=== PATIENT | female | born 1985 ===

== ENCOUNTER 2016-10-23 11:51 | Emergency (ER) | payer MEDICAID ==
[2016-10-23 11:51] VITALS: BMI 26.2
[2016-10-23 11:55] VITALS: TEMP 98.1
[2016-10-23] MEDS ORDERED: Sodium Chloride 0.9% 1,000 ML IV ONE (12:21)
[2016-10-23] MEDS ORDERED: Sodium Chloride 0.9% 1,000 ML ONE (12:33)
[2016-10-23 12:35] LABS: BASO # 0.1 K/uL (0.0-0.2); BASO % 0.7 % (0.0-2.0); EOS # 0.1 K/uL (0.0-0.7); EOS % 0.6 % (0.0-4.0); HEMATOCRIT 39.2 % (34.0-47.0); LYMPH # 0.8 K/uL (1.0-4.3); LYMPH % 9.8 % (20.0-40.0); MEAN CORPUSCULAR HEMOGLOBIN 27.6 pg (27.0-31.0); MEAN CORPUSCULAR HGB CONC 33.3 g/dL (33.0-37.0); MEAN PLATELET VOLUME 8.6 fL (7.2-11.7); MONO # 0.7 K/uL (0.0-0.8); MONO % 7.9 % (0.0-10.0); PLATELET COUNT 346 K/uL (130-400); RED CELL DISTRIBUTION WIDTH 12.9 % (11.5-14.5); WHITE BLOOD COUNT 8.5 K/uL (4.8-10.8)
[2016-10-23 12:41] LABS: CHLORIDE 99 mmol/L (98-107)
[2016-10-23 12:42] LABS: POTASSIUM 3.9 mmol/L (3.6-5.2); SODIUM 136 mmol/L (132-148)
[2016-10-23 12:44] LABS: GFR AFRICAN-AMERICAN > 60
[2016-10-23 12:45] LABS: ALB/GLOB RATIO 1.4 (1.0-2.1); ALKALINE PHOSPHATASE 91 U/L (38-126); ALT/SGPT 28 U/L (9-52); AST/SGOT 29 U/L (14-36); BILIRUBIN,TOTAL 0.7 mg/dL (0.2-1.3); BLOOD UREA NITROGEN 15 mg/dL (7-17); CALCIUM 9.4 mg/dl (8.6-10.4); CARBON DIOXIDE 24 mmol/L (22-30); GLUCOSE,RANDOM 92 mg/dL (65-105); TOTAL PROTEIN 8.2 g/dL (6.3-8.3)
[2016-10-23 12:53] LABS: RBC URINE < 1 /hpf (0-3); URINE BACTERIA RARE (<OCC); URINE BILIRUBIN NEGATIVE (NEGATIVE); URINE BLOOD NEGATIVE (NEGATIVE); URINE COLOR Yellow (YELLOW); URINE GLUCOSE (UA) NORMAL (Normal); URINE KETONE NEGATIVE (NEGATIVE); URINE LEUKOCYTE ESTERASE NEG Leu/uL (Negative); URINE PROTEIN NEGATIVE (NEGATIVE); URINE UROBILINOGEN NORMAL mg/dL (0.2-1.0); WBC URINE 4 /hpf (0-5)
[2016-10-23 12:57] LABS: EOSINOPHIL 1 % (0-4); NEUTROPHIL 85 % (50-75); TOTAL CELLS COUNTED 100
--- NOTE | 2016-10-23 12:58 | C.PDOC ---
History Of Present Illness 31-year-old female, presents to the emergency department with complaints of abdominal pain, nausea w/ non-bloody/non-bilious vomiting and 5-6 episodes of watery/non-bloody diarrhea that started last night. Patient states she ate "mac n cheese" w/ daughter, who initially had similar symptoms, but then improved. Patient reports she is currently having pain but denies nausea. No dysuria or cough. Time Seen by Provider: 10/23/16 11:57 Chief Complaint (Nursing): Abdominal Pain History Per: Patient History/Exam Limitations: no limitations Onset/Duration Of Symptoms: Hrs Current Symptoms Are (Timing): Still Present Severity: Moderate Past Medical History Reviewed: Historical Data, Nursing Documentation, Vital Signs Vital Signs: Last Vital Signs Temp 98.1 F 10/23/16 11:53 Pulse 76 10/23/16 11:53 Resp 20 10/23/16 11:53 BP 124/71 10/23/16 11:53 Pulse Ox 100 10/23/16 13:00 - Medical History PMH: Back Problems Family History: States: No Known Family Hx - Social History Hx Tobacco Use: No Hx Alcohol Use: No Hx Substance Use: No - Immunization History Hx Tetanus Toxoid Vaccination: No Hx Influenza Vaccination: No Hx Pneumococcal Vaccination: No Review Of Systems Constitutional: Negative for: Fever, Chills Cardiovascular: Negative for: Chest Pain, Palpitations Gastrointestinal: Positive for: Nausea, Vomiting, Abdominal Pain, Diarrhea Genitourinary: Negative for: Dysuria, Vaginal Discharge, Vaginal Bleeding Musculoskeletal: Negative for: Back Pain Skin: Negative for: Rash Neurological: Negative for: Weakness, Numbness Physical Exam - Physical Exam Appears: Non-toxic, No Acute Distress, Other (Mild painful distress) Skin: Warm, Dry, No Rash Eye(s): bilateral: Normal Inspection Nose: Normal Oral Mucosa: Moist Lips: Normal Appearing Neck: Normal ROM Cardiovascular: Rhythm Regular Respiratory: Normal Breath Sounds, No Accessory Muscle Use Gastrointestinal/Abdominal: Soft, No Tenderness Extremity: Normal ROM Neurological/Psych: Oriented x3 ED Course And Treatment - Laboratory Results Result Diagrams: 10/23/16 12:31 10/23/16 12:31 O2 Sat by Pulse Oximetry: 100 Progress Note: Bloodwork, UA/HCG ordered and reviewed. Patient treated with IVF and Toradol. Disposition Counseled Patient/Family Regarding: Studies Performed, Diagnosis, Need For Followup - Disposition Referrals: Nael Persaud, SANTO, CHARGING OPERATOR [Advanced Practice Nurse] - Disposition: HOME/ ROUTINE Disposition Time: 13:40 Condition: STABLE Additional Instructions: FOLLOW UP WITH YOUR DOCTOR/CLINIC IN 1-2 DAYS USE MEDICATIONS NEEDED DRINK PLENTY OF CLEAR FLUIDS RETURN TO EMERGENCY ROOM IF SYMPTOMS WORSEN Prescriptions: Dicyclomine [Bentyl] 20 mg PO Q6 PRN #12 tab PRN Reason: ABDOMINAL CRAMPING Ondansetron [Zofran Odt] 4 mg PO Q8 PRN #12 odt PRN Reason: Nausea/Vomiting Instructions: Acute Nausea and Vomiting (ED), Acute Diarrhea (ED) Print Language: CONGOLESE - POA Present On Arrival: None - Clinical Impression Clinical Impression: Nausea, Vomiting, Diarrhea - Scribe Statement The provider has reviewed the documentation as recorded by the Efrain Celeste All medical record entries made by the Efrain were at my direction and personally dictated by me. I have reviewed the chart and agree that the record accurately reflects my personal performance of the history, physical exam, medical decision making, and the department course for this patient. I have also personally directed, reviewed, and agree with the discharge instructions and disposition.
[2016-10-23 13:51] VITALS: BP 100/62; PULSE 77; RESP 18; O2SAT 99
== END 2016-10-23 13:50 | disposition home or self-care (01) ==
LOC: C.ER 11:51
DX: R11.2 Nausea with vomiting, unspecified (principal); R19.7 Diarrhea, unspecified
CPT/HCPCS: 80053; 81001; 83690; 84703; 85025; 96361; 96374; 99284; J1885; J7040

== ENCOUNTER 2017-06-13 15:06 | Emergency (ER) | payer MEDICAID ==
[2017-06-13 15:06] VITALS: BMI 26.2
[2017-06-13 15:21] VITALS: RESP 20
[2017-06-13 16:47] LABS: BASO # 0.1 K/uL (0.0-0.2); BASO % 1.2 % (0.0-2.0); EOS # 0.2 K/uL (0.0-0.7); EOS % 3.4 % (0.0-4.0); HEMOGLOBIN 12.6 g/dL (11.0-16.0); LYMPH % 14.7 % (20.0-40.0); MEAN CELL VOLUME 82.7 fL (81.0-99.0); MEAN CORPUSCULAR HEMOGLOBIN 27.5 pg (27.0-31.0); MEAN CORPUSCULAR HGB CONC 33.3 g/dL (33.0-37.0); MEAN PLATELET VOLUME 8.8 fL (7.2-11.7); MONO # 0.5 K/uL (0.0-0.8); MONO % 7.5 % (0.0-10.0); NEUT % 73.2 % (50.0-75.0); NRBC % 0.1 % (0.0-2.0); RBC 4.58 Mil/uL (3.80-5.20); RED CELL DISTRIBUTION WIDTH 13.9 % (11.5-14.5); WHITE BLOOD COUNT 6.9 K/uL (4.8-10.8)
--- NOTE | 2017-06-13 16:55 | C.PDOC ---
History Of Present Illness 32-YEAR-OLD FEMALE, PRESENTS TO THE EMERGENCY DEPARTMENT WITH COMPLAINTS OF NVD X 10 DAYS. +SICK CONTACTS W SAME. NO FEVER. INC GEN WEAKNESS, ABD CRAMPING. EXAM MILD DIST NONTOXIC SUNKEN EYES ABD NEG POOR TURGOR REMAINDER NEG Time Seen by Provider: 06/13/17 15:45 Chief Complaint (Nursing): Abdominal Pain History Per: Patient History/Exam Limitations: no limitations Onset/Duration Of Symptoms: Days Current Symptoms Are (Timing): Still Present Severity: Moderate Past Medical History Reviewed: Historical Data, Nursing Documentation, Vital Signs Vital Signs: Last Vital Signs Temp 97.5 F L 06/13/17 17:32 Pulse 52 L 06/13/17 17:32 Resp 20 06/13/17 17:32 BP 113/69 06/13/17 17:32 Pulse Ox 100 06/13/17 17:37 - Medical History PMH: Back Problems Family History: States: No Known Family Hx, Unknown Family Hx - Social History Hx Tobacco Use: No Hx Alcohol Use: No Hx Substance Use: No - Immunization History Hx Tetanus Toxoid Vaccination: No Hx Influenza Vaccination: No Hx Pneumococcal Vaccination: No Review Of Systems Except As Marked, All Systems Reviewed And Found Negative. Constitutional: Positive for: Weakness. Negative for: Fever, Chills Cardiovascular: Negative for: Chest Pain, Palpitations Respiratory: Negative for: Shortness of Breath Gastrointestinal: Positive for: Nausea, Vomiting, Abdominal Pain, Diarrhea Musculoskeletal: Negative for: Back Pain Neurological: Negative for: Numbness, Headache, Dizziness Physical Exam - Physical Exam Appears: Non-toxic, No Acute Distress (mild distress) Skin: Warm, Dry, No Rash, Other (POOR TURGOR) Head: Atraumatic, Normacephalic Eye(s): bilateral: Other (SUNKEN EYES) Nose: Normal Oral Mucosa: Moist Lips: Normal Appearing Neck: Normal ROM Chest: Symmetrical Cardiovascular: Rhythm Regular, No Murmur Respiratory: Normal Breath Sounds, No Accessory Muscle Use Gastrointestinal/Abdominal: Soft, No Tenderness ED Course And Treatment - Laboratory Results Result Diagrams: 06/13/17 16:43 06/13/17 16:43 O2 Sat by Pulse Oximetry: 100 (on RA) Pulse Ox Interpretation: Normal Progress - Data Reviewed Data Reviewed: Lab, Old records Disposition Counseled Patient/Family Regarding: Studies Performed, Diagnosis, Need For Followup, Rx Given - Disposition Referrals: YOUR,PMD [Other] Disposition: HOME/ ROUTINE Disposition Time: 18:32 Condition: IMPROVED Prescriptions: Atropine/Diphenoxylate [Lonox 0.025 MG-2.5 MG] 1 tab PO TID PRN #12 tab PRN Reason: Diarrhea Dicyclomine [Bentyl] 20 mg PO QID PRN #20 tab PRN Reason: Pain, Moderate (4-7) Ondansetron [Zofran Odt] 4 mg PO TID PRN #9 odt PRN Reason: Nausea/Vomiting Instructions: Acute Diarrhea (ED) Forms: [employer] (Samoan), Work Excuse - Clinical Impression Clinical Impression: Abdominal pain, Diarrhea - Scribe Statement The provider has reviewed the documentation as recorded by the Scribe (Jaiden Celeste) All medical record entries made by the Scribe were at my direction and personally dictated by me. I have reviewed the chart and agree that the record accurately reflects my personal performance of the history, physical exam, medical decision making, and the department course for this patient. I have also personally directed, reviewed, and agree with the discharge instructions and disposition.
[2017-06-13 16:59] LABS: ALBUMIN 4.3 g/dL (3.5-5.0); CALCIUM 9.3 mg/dl (8.6-10.4); GFR AFRICAN-AMERICAN > 60; GFR NON-AFRICAN AMERICAN > 60; LIPASE 88 U/L (23-300)
[2017-06-13] MEDS ORDERED: Atropine-Diphenoxylate 0.025-2.5 mg Tab PO STA (17:02)
[2017-06-13] MEDS ORDERED: Atropine-Diphenoxylate 0.025-2.5 mg Tab ONE (17:08)
[2017-06-13] MEDS ORDERED: Sodium Chloride 0.9% 2,000 ML ONE (17:09)
[2017-06-13 17:15] LABS: ALB/GLOB RATIO 1.1 (1.0-2.1); ALT/SGPT 20 U/L (9-52); AST/SGOT 33 U/L (14-36); BLOOD UREA NITROGEN 9 mg/dL (7-17)
[2017-06-13 17:34] VITALS: BP 113/69; PULSE 52; TEMP 97.5
[2017-06-13 17:35] VITALS: O2SAT 100
[2017-06-13 17:54] LABS: SQUAMOUS EPITHIAL 2 /hpf (0-5); URINE BACTERIA RARE (<OCC); URINE BILIRUBIN NEGATIVE (NEGATIVE); URINE CLARITY Clear (Clear); URINE COLOR Straw (YELLOW); URINE GLUCOSE (UA) NORMAL (Normal); URINE LEUKOCYTE ESTERASE NEG Leu/uL (Negative); URINE NITRATE NEGATIVE (NEGATIVE); URINE PROTEIN NEGATIVE (NEGATIVE); URINE UROBILINOGEN NORMAL mg/dL (0.2-1.0)
[2017-06-13 17:55] LABS: URINE BLOOD TRACE-INTACT (NEGATIVE)
[2017-06-13] MEDS ORDERED: Oxycodone/Acetaminophen 5/325 mg Tab PO STA (18:36)
[2017-06-13] MEDS ORDERED: Oxycodone/Acetaminophen 5/325 mg Tab ONE (18:54)
== END 2017-06-13 18:57 | disposition home or self-care (01) ==
LOC: C.ER 15:06
DX: R10.9 Unspecified abdominal pain (principal); R19.7 Diarrhea, unspecified
CPT/HCPCS: 80053; 81001; 83690; 85025; 96361; 96372; 96374; 99284; J0500; J2405; J7040

== ENCOUNTER 2017-10-23 22:28 | Emergency (ER) | payer MEDICAID ==
[2017-10-23 22:29] VITALS: BMI 26.2
[2017-10-23 22:47] VITALS: TEMP 98.6; O2SAT 99
--- NOTE | 2017-10-23 23:10 | C.PDOC ---
History Of Present Illness 32 year old female presents to the emergency department with subacute onset of worsening shortness of breath along with a non-productive cough seen mostly at night. Patient is also feeling nauseous, reporting that she vomited only once today, and that she has noticed a weight gain of 10 pounds over the last two weeks. patient also reports frequent urination at night, and experiences shortness of breath on exertion. She also reports noticing black blood in her menstrual period. Patient denies recent control use, recent calf pain or swelling, fever, sore throat, and rashes. Patient's past medical and surgical history is non-contributory. Chief Complaint (Nursing): GI Problem History Per: Patient History/Exam Limitations: no limitations Onset/Duration Of Symptoms: Other (two weeks) Associated Symptoms: denies: Productive Cough, Ankle/Leg Swelling Past Medical History Reviewed: Historical Data, Nursing Documentation, Vital Signs Vital Signs: Last Vital Signs Temp 98.6 F 10/24/17 03:30 Pulse 86 10/24/17 03:30 Resp 20 10/24/17 03:30 BP 116/70 10/24/17 03:30 Pulse Ox 99 10/24/17 03:30 - Medical History PMH: Back Problems Surgical History: No Surg Hx Family History: States: No Known Family Hx - Social History Hx Tobacco Use: No Hx Alcohol Use: No Hx Substance Use: No - Immunization History Hx Tetanus Toxoid Vaccination: No Hx Influenza Vaccination: No Hx Pneumococcal Vaccination: No Review Of Systems Except As Marked, All Systems Reviewed And Found Negative. Constitutional: Negative for: Fever ENT: Negative for: Throat Pain Respiratory: Positive for: Cough, Shortness of Breath, SOB with Excertion Gastrointestinal: Positive for: Nausea, Vomiting Genitourinary: Positive for: Frequency Musculoskeletal: Negative for: Leg Pain Skin: Negative for: Rash Physical Exam - Physical Exam Appears: Non-toxic, No Acute Distress Skin: Warm, Dry Head: Atraumatic, Normacephalic Eye(s): bilateral: Normal Inspection Oral Mucosa: Moist Throat: Normal, No Erythema, No Exudate, No Drooling Neck: Supple, Other (JVD at 0 degrees, resolves with elevation) Chest: Symmetrical Cardiovascular: Rhythm Regular, Murmur (systolic 3/6 loudest in the aortic area , right second intercostal space) Respiratory: Normal Breath Sounds, No Rales, No Rhonchi, No Stridor, No Wheezing , Other (persistent cough througout the exam) Gastrointestinal/Abdominal: Normal Exam, Soft, No Tenderness, No Guarding, No Rebound Extremity: Normal ROM, Swelling (trace edema to bilateral lower extremities) Pulses: Left Dorsalis Pedis: Normal, Right Dorsalis Pedis: Normal Neurological/Psych: Oriented x3 ED Course And Treatment - Laboratory Results Result Diagrams: 10/23/17 23:18 10/23/17 23:18 ECG Rhythm: Sinus Rhythm (71 bpm ) ECG Interpretation: Normal Interpretation Of ECG: Intervals within normal limits, poor heart wave progression across the lateral precordial leads, no old EKG for comparison. O2 Sat by Pulse Oximetry: 99 (RA) Pulse Ox Interpretation: Normal - CT Scan/US CT Angio Chest Other Rad Studies (CT/US): Read By Radiologist, Radiology Report Reviewed CT/US Interpretation: IMPRESSION: 1. There is left anterior paramediastinal prevascular mass with foci of gas. seen on image 77 and 84 series 2 encasing the left pulmonary artery and the. pulmonary arterial trunk measuring 8.1x 7.4 x 9.0 cm suspicious for aggressive. neoplastic process. The bubbles of gas may represent cavitation versus the. sequela of necrosis. 2. No CT evidence for central pulmonary embolus. There is encasement of left. main pulmonary artery and left upper lobe pulmonary arterial branches. There. is irregular ratty appearance to the left main pulmonary trunk seen on image 51. series 604 and image 103 series 2 suspicious for invasion of the pulmonary. artery with tumor. . Correlation with internal medicine pulmonary/oncology history clinical. evaluation and further workup or followup as recommended by patient' s clinical. data. Medical Decision Making Medical Decision Making: Plan: EKG BNP CMP TSH Troponin CBC D-Dimer ESR CXR One View Zofran 4mg IVP Urinalysis Impression: Aortic stenosis with mild CHF vs. Pulmonary embolism vs. Patient reports that her home test was negative. Labs: BNP normal Elevated d-dimer, will order a CT Angio Call placed to Dr. Camarena, who did not respond and a callback message was left. 02:57 second call placed to Dr. Camarena, who failed to respond and a second message was left. Disposition - Disposition Referrals: Godfrey Huang MD [Staff Provider] - Yani Garcia MD [Staff Provider] - Disposition: HOME/ ROUTINE Disposition Time: 04:31 Condition: GOOD Additional Instructions: Dr Huang the chest surgeon will see you on Wednesday,please call office at [phone].Dr Garcia asks that you call his office on Wednesday also.He is the tu or specialist Instructions: Mediastinal Tumor Resection, Mediastinoscopy Forms: adjust (Hebrew) - Clinical Impression Clinical Impression: Mediastinal tumor - Scribe Statement The provider has reviewed the documentation as recorded by the Scribe (Dae Singh) Provider Attestation: All medical record entries made by the Scribe were at my direction and personally dictated by me. I have reviewed the chart and agree that the record accurately reflects my personal performance of the history, physical exam, medical decision making, and the department course for this patient. I have also personally directed, reviewed, and agree with the discharge instructions and disposition.
[2017-10-23 23:23] LABS: BASO # 0.1 K/uL (0.0-0.2); BASO % 1.2 % (0.0-2.0); EOS # 0.2 K/uL (0.0-0.7); EOS % 2.9 % (0.0-4.0); HEMOGLOBIN 11.5 g/dL (11.0-16.0); LYMPH % 14.3 % (20.0-40.0); MEAN CORPUSCULAR HEMOGLOBIN 27.2 pg (27.0-31.0); MEAN PLATELET VOLUME 8.7 fL (7.2-11.7); MONO # 0.9 K/uL (0.0-0.8); NEUT # 5.1 K/uL (1.8-7.0); NEUT % 69.6 % (50.0-75.0); RBC 4.25 Mil/uL (3.80-5.20); RED CELL DISTRIBUTION WIDTH 13.6 % (11.5-14.5); WHITE BLOOD COUNT 7.3 K/uL (4.8-10.8)
[2017-10-23 23:36] LABS: ALBUMIN 4.1 g/dL (3.5-5.0); ALT/SGPT 9 U/L (9-52); AST/SGOT 16 U/L (14-36); BLOOD UREA NITROGEN 11 mg/dL (7-17); CALCIUM 9.4 mg/dl (8.6-10.4); GFR AFRICAN-AMERICAN > 60; GFR NON-AFRICAN AMERICAN > 60
[2017-10-23 23:58] LABS: B-TYPE NATRIURETIC PEPTIDE 84.2 pg/mL (0-450)
[2017-10-24] MEDS ORDERED: Iodixanol 320 MG/ML 100 ML BOTTLE IV ONE (00:12)
[2017-10-24 00:25] LABS: SQUAMOUS EPITHIAL 12 /hpf (0-5); URINE BILIRUBIN NEGATIVE (NEGATIVE); URINE CLARITY Hazy (Clear); URINE COLOR Yellow (YELLOW); URINE GLUCOSE (UA) NORMAL (Normal); URINE PROTEIN NEGATIVE (NEGATIVE); URINE UROBILINOGEN NORMAL mg/dL (0.2-1.0)
[2017-10-24 00:26] LABS: URINE BLOOD 1+ (NEGATIVE); URINE LEUKOCYTE ESTERASE 2+ Leu/uL (Negative)
--- NOTE | 2017-10-24 01:38 | CT ---
EXAM: CT Angiography Chest With Intravenous Contrast CLINICAL HISTORY: 32 years old, female; Signs and symptoms; Cough and shortness of breath; Symptoms not specified; Patient HX: SOB, cough for 1 week TECHNIQUE: Axial computed tomographic angiography images of the chest with intravenous contrast using pulmonary embolism protocol. All CT scans at this facility use one or more dose reduction techniques, viz.: automated exposure control; ma/kV adjustment per patient size (including targeted exams where dose is matched to indication; i.e. head); or iterative reconstruction technique. 897 images are submitted. Axial images are submitted in mediastinal and lung windows. MIP reconstructed images were created and reviewed. Coronal and sagittal reformatted images were created and reviewed. Axial reformatted images were created and reviewed. CONTRAST: 100 mL of visipaque 320 administered intravenously. COMPARISON: No relevant prior studies available. FINDINGS: Pulmonary arteries: No CT evidence for central pulmonary embolus. There is encasement of left main pulmonary artery and left upper lobe pulmonary arterial branches. There is irregular ratty appearance to the left main pulmonary trunk seen on image 51 series 604 and image 103 series 2 suspicious for invasion of the pulmonary artery with tumor. Aorta: No acute findings. No thoracic aortic aneurysm. Celiac trunk: Celiac trunk is patent. Superior mesenteric artery: SMA is patent. Renal arteries: Bilateral renal arteries are patent. Lungs: The visualized portions of major airways are patent. The lungs are clear. Pleural space: Unremarkable. No significant effusion. No pneumothorax. Heart: Moderate pericardial effusion. Cardiomegaly. Mediastinum: There is left anterior paramediastinal prevascular mass with foci of gas seen on image 77 and 84 series 2 encasing the left main pulmonary artery and the pulmonary arterial trunk measuring 8.1x 7.4 x 9.0 cm suspicious for aggressive neoplastic process. The bubbles of gas may represent cavitation versus the sequela of necrosis. Bones/joints: No acute fracture. No dislocation. Soft tissues: Unremarkable. Lymph nodes: Left cardiophrenic angle subcentimeter lymph nodes. Left hilar lymphadenopathy versus tumor extension Spleen: Heterogeneous appearance to the spleen secondary to phase of scanning. Adrenals: Normal adrenal glands. Other findings: IMPRESSION: 1. There is left anterior paramediastinal prevascular mass with foci of gas seen on image 77 and 84 series 2 encasing the left pulmonary artery and the pulmonary arterial trunk measuring 8.1x 7.4 x 9.0 cm suspicious for aggressive neoplastic process. The bubbles of gas may represent cavitation versus the sequela of necrosis. 2. No CT evidence for central pulmonary embolus. There is encasement of left main pulmonary artery and left upper lobe pulmonary arterial branches. There is irregular ratty appearance to the left main pulmonary trunk seen on image 51 series 604 and image 103 series 2 suspicious for invasion of the pulmonary artery with tumor. Correlation with internal medicine pulmonary/oncology history clinical evaluation and further workup or followup as recommended by patient's clinical data.
[2017-10-24 03:31] VITALS: BP 116/70; PULSE 86; RESP 20
--- NOTE | 2017-10-24 08:03 | RAD ---
Chest x-ray single frontal view History: Shortness of breath. Comparison: None available. Findings: Enlarged ectatic aorta. Top normal heart size. No focal infiltrate or effusion. Impression: Enlarged ectatic aorta. Top normal heart size. No focal infiltrate or effusion.
--- NOTE | 2017-10-26 13:37 | CARD ---
APPROVED REPORT EKG Measurement Heart [id number] <Conclusion> Normal sinus rhythm Low voltage QRS Possible Lateral infarct, age undetermined Abnormal ECG
== END 2017-10-24 03:30 | disposition home or self-care (01) ==
LOC: C.ER 22:28
DX: D49.89 Neoplasm of unspecified behavior of other specified sites (principal)
CPT/HCPCS: 71045; 71275; 80053; 81001; 83880; 84443; 84484; 85025; 85378; 85651; 87086; 96374; 99284; J2405; Q9967

== ENCOUNTER 2017-11-21 05:51 | Emergency (ER) | payer MEDICAID ==
[2017-11-21 05:51] VITALS: BMI 26.2
[2017-11-21 06:03] VITALS: TEMP 98.6
--- NOTE | 2017-11-21 06:34 | C.PDOC ---
History Of Present Illness 32 year old female presents to the ED c.o left lower back radiating to her left groin since last night. Patient states pain is worse with movement. Patient states she had PMHx of non hodgkin lymphoma stage 2 had biopsy done couple of days ago and was given percocet. Patient is taking percocet for her back pain but is not helping with symptoms. Patient denies injury,fall, trauma, CP, SOB, numbness, weakness. Time Seen by Provider: 11/21/17 06:04 Chief Complaint (Nursing): Abdominal Pain History Per: Patient History/Exam Limitations: no limitations Onset/Duration Of Symptoms: Days Current Symptoms Are (Timing): Still Present Location Of Pain/Discomfort: LLQ Radiation Of Pain To:: Back, Flank Quality Of Discomfort: "Pain" Exacerbating Factors: None Alleviating Factors: None Recent travel outside of the [place] States: No Additional History Per: Patient Abnormal Vaginal Bleeding: No Past Medical History Reviewed: Historical Data, Nursing Documentation, Vital Signs Vital Signs: Last Vital Signs Temp 98.6 F 11/21/17 07:25 Pulse 82 11/21/17 07:25 Resp 18 11/21/17 07:25 BP 121/68 11/21/17 07:25 Pulse Ox 99 11/21/17 07:52 - Medical History PMH: Back Problems Surgical History: No Surg Hx Family History: States: Unknown Family Hx - Social History Hx Tobacco Use: No Hx Alcohol Use: No Hx Substance Use: No - Immunization History Hx Tetanus Toxoid Vaccination: No Hx Influenza Vaccination: No Hx Pneumococcal Vaccination: No Review Of Systems Constitutional: Negative for: Fever, Chills Cardiovascular: Negative for: Chest Pain Respiratory: Negative for: Cough, Shortness of Breath Gastrointestinal: Positive for: Abdominal Pain. Negative for: Nausea, Vomiting Musculoskeletal: Positive for: Back Pain Skin: Negative for: Rash Physical Exam - Physical Exam Appears: Non-toxic, No Acute Distress Skin: Normal Color, Warm, Dry Head: Atraumatic, Normacephalic Eye(s): bilateral: Normal Inspection Oral Mucosa: Moist Neck: Normal ROM, Supple Chest: Symmetrical Cardiovascular: Rhythm Regular Respiratory: Normal Breath Sounds, No Rales, No Rhonchi, No Wheezing Gastrointestinal/Abdominal: Soft, No Tenderness, No Guarding, No Rebound Back: No CVA Tenderness, Paraspinal Tenderness (lumbar), Straight Leg Raising ( negative) Extremity: Normal ROM, No Tenderness, Capillary Refill (<2 seconds), No Swelling Neurological/Psych: Oriented x3, Normal Speech Gait: Steady ED Course And Treatment O2 Sat by Pulse Oximetry: 99 (ON RA) Pulse Ox Interpretation: Normal Progress Note: Plan: - Toradol 30 mg IM. - Valium 5 mg PO. - UA. Pain improved, pt with indication of UTI on UA. based on symptoms, pE and UA pt will be treated for UTI and d/c home on PO abx and nsaids. Follow up and returnprecautions were discussed Reevaluation Time: 07:20 Reassessment Condition: Improved Disposition Counseled Patient/Family Regarding: Diagnosis, Need For Followup - Disposition Referrals: [facility] at [facility] [Outside] Disposition: HOME/ ROUTINE Disposition Time: 07:46 Condition: STABLE Additional Instructions: Increase fluids ' Take meds as directed Follwo up with PMD Return to ER if worse Prescriptions: Nitrofurantoin Macrocrystals [Macrobid] 100 mg PO BID #14 cap Instructions: Urinary Tract Infection, Adult (DC) Forms: [employer] (Taiwanese) - Clinical Impression Clinical Impression: Urinary tract infection - PA / BABBITT SPINNER / Resident Statement MD/DO has reviewed & agrees with the documentation as recorded. - Scribe Statement The provider has reviewed the documentation as recorded by the Scribe Michael Villegas All medical record entries made by the Scribe were at my direction and personally dictated by me. I have reviewed the chart and agree that the record accurately reflects my personal performance of the history, physical exam, medical decision making, and the department course for this patient. I have also personally directed, reviewed, and agree with the discharge instructions and disposition.
[2017-11-21 06:45] LABS: HCG,QUALITATIVE URINE NEGATIVE (NEGATIVE)
[2017-11-21 06:47] LABS: SQUAMOUS EPITHIAL 8 /hpf (0-5); URINE BACTERIA RARE (<OCC); URINE BILIRUBIN NEGATIVE (NEGATIVE); URINE BLOOD NEGATIVE (NEGATIVE); URINE CLARITY Hazy (Clear); URINE COLOR Yellow (YELLOW); URINE GLUCOSE (UA) NORMAL (Normal); URINE LEUKOCYTE ESTERASE 1+ Leu/uL (Negative); URINE PROTEIN NEGATIVE (NEGATIVE); URINE UROBILINOGEN NORMAL mg/dL (0.2-1.0)
[2017-11-21 07:26] VITALS: BP 121/68; PULSE 82; RESP 18
[2017-11-21 07:49] VITALS: O2SAT 99
== END 2017-11-21 08:06 | disposition home or self-care (01) ==
LOC: C.ER 05:51
DX: N39.0 Urinary tract infection, site not specified (principal)
CPT/HCPCS: 81001; 84703; 96372; 99285; J1885

== ENCOUNTER 2018-03-27 22:02 | Emergency (ER) | payer MEDICAID ==
[2018-03-27] MEDS ORDERED: Sodium Chloride 0.9% 1,000 ML IV ONE (22:19)
[2018-03-27] MEDS ORDERED: Morphine 4 MG/ML VIAL IVP STA (22:20)
[2018-03-27 22:23] VITALS: BMI 24.2
[2018-03-27] MEDS ORDERED: Morphine 4 MG/ML VIAL ONE (22:24)
[2018-03-27 22:31] LABS: BASO # 0.1 K/uL (0.0-0.2); EOS # 0.3 K/uL (0.0-0.7); EOS % 3.2 % (0.0-4.0); LYMPH # 1.2 K/uL (1.0-4.3); MEAN CORPUSCULAR HEMOGLOBIN 28.7 pg (27.0-31.0); MEAN CORPUSCULAR HGB CONC 33.9 g/dL (33.0-37.0); MONO # 2.7 K/uL (0.0-0.8); MONO % 27.2 % (0.0-10.0); NEUT # 5.7 K/uL (1.8-7.0); NEUT % 56.6 % (50.0-75.0); NRBC % 0.8 % (0.0-2.0); PLATELET COUNT 301 K/uL (130-400); RBC 2.75 Mil/uL (3.80-5.20); RED CELL DISTRIBUTION WIDTH 19.7 % (11.5-14.5)
[2018-03-27 22:33] LABS: HEMOGLOBIN 7.9 g/dL (11.0-16.0); MEAN CELL VOLUME 84.6 fL (81.0-99.0)
[2018-03-27 22:46] LABS: ALB/GLOB RATIO 1.3 (1.0-2.1); ALBUMIN 3.4 g/dL (3.5-5.0); ALT/SGPT 29 U/L (9-52); AST/SGOT 27 U/L (14-36); BLOOD UREA NITROGEN 11 mg/dL (7-17); CALCIUM 8.9 mg/dl (8.6-10.4); GFR NON-AFRICAN AMERICAN > 60
[2018-03-27 22:54] LABS: ANISOCYTOSIS MODERATE; BANDS 9 % (0-2); BASOPHIL 2 % (0-2); EOSINOPHIL 6 % (0-4); LYMPHOCYTE 9 % (20-40); METAMYELOCYTE 2 % (0-0); MONOCYTE 27 % (0-10); MYELOCYTE 3 % (0-0); NEUTROPHIL 42 % (50-75); PLATELET ESTIMATE NORMAL (NORMAL); TOTAL CELLS COUNTED 100
[2018-03-27 22:55] LABS: HYPOCHROMIC SLIGHT; POLYCHROMIC SLIGHT
--- NOTE | 2018-03-27 23:18 | C.PDOC ---
Time Seen by Provider: 03/27/18 22:18 Chief Complaint (Nursing): Abdominal Pain Past Medical History Vital Signs: Last Vital Signs Temp 98.6 F 03/27/18 22:15 Pulse 58 L 03/27/18 22:30 Resp 13 03/27/18 22:30 BP 104/72 03/27/18 22:30 Pulse Ox 100 03/27/18 22:30 - Medical History PMH: Back Problems Family History: States: Unknown Family Hx - Social History Hx Tobacco Use: No Hx Alcohol Use: No Hx Substance Use: No - Immunization History Hx Tetanus Toxoid Vaccination: No Hx Influenza Vaccination: No Hx Pneumococcal Vaccination: No ED Course And Treatment - Laboratory Results Result Diagrams: 03/27/18 22:26 03/27/18 22:27 Lab Interpretation: Abnormal (bandemia 9%, low lymphocytes (c/w recent chemo), trop neg.) ECG: Interpreted By [place] ECG Rhythm: Sinus Rhythm ECG Interpretation: Normal Rate From EC O2 Sat by Pulse Oximetry: 100 Pulse Ox Interpretation: Normal - Radiology CXR: Interpreted by [place] CXR Interpretation: Yes: No Acute Disease Reevaluation Time: 23:17 Reassessment Condition: Improved - Physician Consult Information Outcome Of Conversation: [id number]: d/w ROSIE Shaw for Dr. Shanae Butcher, pt's Heme/Onc @ [place]. ok to d/c after reviewing present labs. asks for pt to f/u in outpatient Clinic this week. Medical Decision Making Medical Decision Making: typical post-chemo abd discomfort and vomiting. improved with typical ED tx (per , usually same @ [facility]) approved for d/c by pt's Heme/Onc pt stable afebrile and non-toxic for d/c. Disposition Doctor Will See Patient In The: Office Counseled Patient/Family Regarding: Studies Performed, Diagnosis - Disposition Disposition: HOME/ ROUTINE Disposition Time: 23:19 Condition: GOOD - Clinical Impression Clinical Impression: Adverse effect of chemotherapy
[2018-03-27 23:33] VITALS: BP 106/64; PULSE 63; RESP 16; TEMP 98.3; O2SAT 98
--- NOTE | 2018-03-28 09:30 | RAD ---
Date of service: 03/27/2018 PROCEDURE: CHEST RADIOGRAPH, 1 VIEW HISTORY: SOB COMPARISON: 10/23/2017 FINDINGS: Right-sided MediPort terminates at the cavoatrial junction. LUNGS: The lungs are well inflated and clear. PLEURA: No pneumothorax or pleural effusion. CARDIOVASCULAR: The heart is normal in size. No aortic atherosclerotic calcifications present. OSSEOUS STRUCTURES: Within normal limits for the patient's age. VISUALIZED UPPER ABDOMEN: Normal. OTHER FINDINGS: None. IMPRESSION: No acute findings.
--- NOTE | 2018-03-28 21:37 | CARD ---
APPROVED REPORT Date of service: 03/27/2018 EKG Measurement Heart [id number] <Conclusion> Sinus bradycardia with 1st degree AV block ST & T wave abnormality, consider anterior ischemia Abnormal ECG
== END 2018-03-27 23:39 | disposition home or self-care (01) ==
LOC: C.ER 22:02
DX: R10.9 Unspecified abdominal pain (principal); T45.1X5A Adverse effect of antineoplastic and immunosuppressive drugs, initial encounter
CPT/HCPCS: 71045; 80053; 84484; 85025; 93005; 96361; 96374; 96375; 99284; J2270; J2405; J7030

== ENCOUNTER 2018-03-29 10:08 | Emergency (ER) | payer MEDICAID ==
[2018-03-29 10:08] VITALS: BMI 26.2
[2018-03-29 10:33] VITALS: BP 99/64; PULSE 74; RESP 16; TEMP 97.8; O2SAT 96
[2018-03-29] MEDS ORDERED: Oxycodone/Acetaminophen 5/325 mg Tab PO STA (10:42)
[2018-03-29] MEDS ORDERED: Alum-Mag Hydrox-Simethicone Susp (30 mL) PO STA (10:42)
--- NOTE | 2018-03-29 10:49 | C.PDOC ---
History Of Present Illness 33 year old female presents to the ED for evaluation of nausea, vomiting, and diarrhea. Patient reports weekly chemo therapy for lymphoma and was seen by PMD for similar symptoms. Admits to taking Pepto-Bismol with no improvement. Also notes she did not take her prescribed morphine for unknown reasons. Denies fever and any other associated symptoms. Chief Complaint (Nursing): Abdominal Pain History Per: Patient History/Exam Limitations: no limitations Onset/Duration Of Symptoms: Hrs Current Symptoms Are (Timing): Still Present Past Medical History Reviewed: Historical Data, Nursing Documentation, Vital Signs Vital Signs: Last Vital Signs Temp 97.8 F 03/29/18 10:31 Pulse 74 03/29/18 10:31 Resp 16 03/29/18 10:31 BP 99/64 L 03/29/18 10:31 Pulse Ox 96 03/29/18 10:31 - Medical History PMH: Back Problems Family History: States: Unknown Family Hx - Social History Hx Tobacco Use: No Hx Alcohol Use: No Hx Substance Use: No - Immunization History Hx Tetanus Toxoid Vaccination: No Hx Influenza Vaccination: No Hx Pneumococcal Vaccination: No Review Of Systems Except As Marked, All Systems Reviewed And Found Negative. Constitutional: Positive for: Other (weekly chemotherapy.). Negative for: Fever Gastrointestinal: Positive for: Nausea, Vomiting, Diarrhea Physical Exam - Physical Exam Appears: Chronically Ill, Other (balled head. sallow.) Skin: Warm, Dry Head: Atraumatic, Normacephalic Eye(s): bilateral: Normal Inspection Gastrointestinal/Abdominal: Soft, Tenderness (to the alicia-umbilical area. ), Other (obese belly. ) Rectal: Other ((-) galeana's (-) mcburney's poin) Neurological/Psych: Oriented x3, Normal Speech ED Course And Treatment O2 Sat by Pulse Oximetry: 96 (RA) Pulse Ox Interpretation: Normal Medical Decision Making Medical Decision Making: viral GE as younger daugher, already resolved and/or concomitant chemo for lymphoma pending today- may be causing diarrhea as well. frequent stools today, encouraged to us PO morphine, maalox/and will Rx Bentyl Plan: -Bentyl -Maalox -Percocet Progress/Update: Patient stable for discharge home. Prescribed Dicyclomine HCL. Disposition Doctor Will See Patient In The: Office Counseled Patient/Family Regarding: Studies Performed, Diagnosis - Disposition Referrals: Nael Persaud, SANTO, RATING SPECIALIST [Advanced Practice Nurse] - Disposition: HOME/ ROUTINE Disposition Time: 10:48 Condition: GOOD Additional Instructions: continue maalox/pepto bismol 5x'day as needed Bentyl 10 mg (antispasmotic) for belly cramps typical morphine oral regimen (you already have) BRAT diet: Bananas, white rice, applesauce, toast/bread Follow-up with your PMD in 2 days as needed. Prescriptions: Dicyclomine [Dicyclomine HCl] 10 mg PO TID PRN #10 cap PRN Reason: diarrhea cramps Instructions: Diarrhea in Adolescents and Adults, Nausea and Vomiting, Adult Forms: [facility] (Guamanian) - Clinical Impression Clinical Impression: Diarrhea, Vomiting and diarrhea
[2018-03-29] MEDS ORDERED: Aluminum Hydroxide/Magnesium Hydroxide Susp (30 mL) ONE (10:51)
[2018-03-29] MEDS ORDERED: Oxycodone/Acetaminophen 5/325 mg Tab ONE (10:51)
== END 2018-03-29 10:56 | disposition home or self-care (01) ==
LOC: C.ER 10:08
DX: R19.7 Diarrhea, unspecified (principal); R11.10 Vomiting, unspecified

== ENCOUNTER 2018-06-03 00:31 | Emergency (ER) | payer MEDICAID ==
[2018-06-03 00:31] VITALS: BMI 26.2
[2018-06-03 00:53] VITALS: O2SAT 98
[2018-06-03] MEDS ORDERED: Sodium Chloride 0.9% 1,000 ML ONE (01:01)
[2018-06-03] MEDS ORDERED: Morphine 4 MG/ML VIAL ONE ×2 (01:02→01:17)
[2018-06-03 01:19] LABS: BASO # 0.2 K/uL (0.0-0.2); BASO % 2.7 % (0.0-2.0); EOS # 0.3 K/uL (0.0-0.7); EOS % 3.8 % (0.0-4.0); HEMOGLOBIN 10.7 g/dL (11.0-16.0); MEAN CORPUSCULAR HEMOGLOBIN 28.5 pg (27.0-31.0); MEAN CORPUSCULAR HGB CONC 32.8 g/dL (33.0-37.0); MEAN PLATELET VOLUME 8.3 fL (7.2-11.7); MONO # 1.6 K/uL (0.0-0.8); NEUT # 3.3 K/uL (1.8-7.0); NEUT % 44.5 % (50.0-75.0); NRBC % 0.1 % (0.0-2.0); PLATELET COUNT 440 K/uL (130-400); RBC 3.73 Mil/uL (3.80-5.20); RED CELL DISTRIBUTION WIDTH 19.3 % (11.5-14.5); WHITE BLOOD COUNT 7.3 K/uL (4.8-10.8)
[2018-06-03 01:30] LABS: ALB/GLOB RATIO 1.6 (1.0-2.1); ALBUMIN 4.4 g/dL (3.5-5.0); ALT/SGPT 22 U/L (9-52); AST/SGOT 19 U/L (14-36); BLOOD UREA NITROGEN 21 mg/dL (7-17); CALCIUM 9.2 mg/dl (8.6-10.4); GFR NON-AFRICAN AMERICAN > 60
[2018-06-03 01:50] LABS: BANDS 1 % (0-2); EOSINOPHIL 3 % (0-4); LYMPHOCYTE 30 % (20-40); MONOCYTE 21 % (0-10); NEUTROPHIL 45 % (50-75); PLATELET ESTIMATE NORMAL (NORMAL); TOTAL CELLS COUNTED 100
[2018-06-03 01:51] LABS: ANISOCYTOSIS SLIGHT; POIKILOCYTOSIS SLIGHT
--- NOTE | 2018-06-03 02:01 | C.PDOC ---
History Of Present Illness 33 year old female presents to the ER with a complaint of abdominal pain and back pain typical of her post chemo regiment. Patient received some emotionally disturbing news at home which also exacerbates the pain. Patient has had mul tiple presentations in the past for the same. Time Seen by Provider: 06/03/18 01:03 Chief Complaint (Nursing): Abdominal Pain History Per: Patient History/Exam Limitations: no limitations Onset/Duration Of Symptoms: Hrs Current Symptoms Are (Timing): Still Present Quality Of Discomfort: Unable To Describe Exacerbating Factors: None Alleviating Factors: None Recent travel outside of the [place]: No Past Medical History Reviewed: Historical Data, Nursing Documentation, Vital Signs Vital Signs: Last Vital Signs Temp 97.3 F L 06/03/18 00:48 Pulse 82 06/03/18 00:48 Resp 22 06/03/18 00:48 BP 107/78 06/03/18 00:48 Pulse Ox 98 06/03/18 00:48 - Medical History PMH: Back Problems Family History: States: Unknown Family Hx - Social History Hx Tobacco Use: No Hx Alcohol Use: No Hx Substance Use: No - Immunization History Hx Tetanus Toxoid Vaccination: No Hx Influenza Vaccination: No Hx Pneumococcal Vaccination: No Review Of Systems Constitutional: Negative for: Fever, Chills Cardiovascular: Negative for: Chest Pain, Palpitations Respiratory: Negative for: Cough, Shortness of Breath Gastrointestinal: Positive for: Abdominal Pain. Negative for: Nausea, Vomiting Musculoskeletal: Positive for: Back Pain Neurological: Negative for: Weakness, Numbness Physical Exam - Physical Exam Appears: Other (Moderate to severe distress) Skin: Normal Color, Warm, Dry Head: Atraumatic, Normacephalic Eye(s): bilateral: Normal Inspection Oral Mucosa: Moist Chest: Symmetrical, No Tenderness Cardiovascular: Rhythm Regular Respiratory: Normal Breath Sounds, No Rales, No Rhonchi, No Wheezing Gastrointestinal/Abdominal: Soft, Tenderness (Epigastric), No Guarding, No Rebound Back: Other (No reproducible tenderness) Neurological/Psych: Oriented x3, Normal Speech ED Course And Treatment - Laboratory Results Result Diagrams: 06/03/18 01:15 06/03/18 01:15 Lab Results: Total Bilirubin 0.2 mg/dL (0.2-1.3) 06/03/18 01:15 AST 19 U/L (14-36) 06/03/18 01:15 ALT 22 U/L (9-52) 06/03/18 01:15 Alkaline Phosphatase 62 U/L (38-126) 06/03/18 01:15 Total Protein 7.1 g/dL (6.3-8.3) 06/03/18 01:15 Albumin 4.4 g/dL (3.5-5.0) 06/03/18 01:15 Globulin 2.7 gm/dL (2.2-3.9) 06/03/18 01:15 Albumin/Globulin Ratio 1.6 (1.0-2.1) 06/03/18 01:15 Lab Interpretation: Abnormal (baseline for this pt 3 weeks s/p last Chemo, CPK 26 low) O2 Sat by Pulse Oximetry: 98 (Room air) Pulse Ox Interpretation: Normal Reevaluation Time: 01:59 Reassessment Condition: Improved Medical Decision Making Medical Decision Making: anxiety vs post-Chemo reaction prior episodes of same. improved with typical ED tx Morphine 10 IV and IVF's ok for d/c home. 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 I have reviewed the chart and agree that the record accurately reflects my personal performance of the history, physical exam, medical decision making, and the department course for this patient. I have also personally directed, reviewed, and agree with the discharge instructions and disposition.
[2018-06-03 02:09] VITALS: BP 118/70; PULSE 79; RESP 20; TEMP 98
== END 2018-06-03 02:09 | disposition home or self-care (01) ==
LOC: C.ER 00:31
DX: G62.9 Polyneuropathy, unspecified (principal); Z79.899 Other long term (current) drug therapy
CPT/HCPCS: 80053; 82550; 85025; 96374; 99285; J2270

== ENCOUNTER 2018-06-10 21:03 | Emergency (ER) | payer MEDICAID ==
[2018-06-10 21:03] VITALS: BMI 26.2
[2018-06-10] MEDS ORDERED: Sodium Chloride 0.9% 1,000 ML IV ONE (22:00)
--- NOTE | 2018-06-10 22:18 | C.PDOC ---
History Of Present Illness 33 year old female with Hx of lymphoma presents with abdominal pain and vomiting. She has numerous visits for similar complaints and is requesting morphine. ho of lyphoma. in er, upon arrival pt crying uncomfortable from pain. Denies fever or other complaints. Time Seen by Provider: 06/10/18 21:53 Chief Complaint (Nursing): Abdominal Pain History Per: Patient History/Exam Limitations: no limitations Onset/Duration Of Symptoms: Hrs Current Symptoms Are (Timing): Still Present Quality Of Discomfort: Unable To Describe Associated Symptoms: Vomiting. denies: Fever, Chills, Diarrhea Exacerbating Factors: None Alleviating Factors: None Recent travel outside of the [place]: No Abnormal Vaginal Bleeding: No Past Medical History Reviewed: Historical Data, Nursing Documentation, Vital Signs Vital Signs: Last Vital Signs Temp 97.6 F 06/10/18 21:25 Pulse 84 06/10/18 21:25 Resp 20 06/10/18 21:25 BP 124/73 06/10/18 21:25 Pulse Ox 99 06/10/18 21:25 - Medical History PMH: Back Problems Family History: States: Unknown Family Hx - Social History Hx Tobacco Use: No Hx Alcohol Use: No Hx Substance Use: No - Immunization History Hx Tetanus Toxoid Vaccination: No Hx Influenza Vaccination: No Hx Pneumococcal Vaccination: No Review Of Systems Constitutional: Negative for: Fever, Chills Cardiovascular: Negative for: Chest Pain, Palpitations Respiratory: Negative for: Cough, Shortness of Breath Gastrointestinal: Positive for: Vomiting, Abdominal Pain. Negative for: Diarrhea Genitourinary: Negative for: Dysuria, Hematuria Neurological: Negative for: Weakness, Numbness Physical Exam - Physical Exam Appears: Non-toxic, Other (Anxious, uncomfortable) Skin: Normal Color, Warm, Dry Head: Atraumatic, Normacephalic Eye(s): bilateral: Normal Inspection Oral Mucosa: Moist Neck: Normal, Supple Chest: Symmetrical, No Tenderness Cardiovascular: Rhythm Regular Respiratory: Normal Breath Sounds, No Rales, No Rhonchi, No Wheezing Gastrointestinal/Abdominal: Soft, Tenderness (Epigastric), No Guarding, No Rebound Back: No CVA Tenderness Extremity: Normal ROM (x4) Neurological/Psych: Oriented x3, Normal Speech ED Course And Treatment - Laboratory Results Result Diagrams: 06/10/18 22:21 06/10/18 22:21 O2 Sat by Pulse Oximetry: 99 (Room air) Pulse Ox Interpretation: Normal Against Medical Advice - AMA Patient Left Against Medical Advice: The patient declines admission to the hospital and wishes to leave the Emergency Department. This action is against my medical advice. This decision was made with informed refusal. The patient was told that admission to the hospital is necessary. Explanation of the reasons why were discussed. The risks of leaving were explained to the patient and include, but are not limited to, worsening of known or currently unknown conditions, permanent disability and from undiagnosed or untreated conditions. The patient has the capacity to make this informed decision and understands my explanation of the current medical problem and risks of leaving. The patient voluntarily accepts these risks and signed an AMA form documenting our conversation. The patient was given the opportunity to ask questions and reconsider. The patient was encouraged to return to the Emergency Department at any time for further care. Medical Decision Making Medical Decision Making: Blood work and urinalysis ordered. Morphine, zofran, and IV fluids administered multiple rounds of morphine given. pain improvd. lasb neg. given inital presentaiton of severe pain, requested ct. after morphine, pt refuses. states she will return with worsening. advised of risk of acute abdominal pathology. refuses. signs AMA> Disposition - Disposition Disposition: AGAINST MEDICAL ADVICE Disposition Time: 23:00 Condition: UNKNOWN Additional Instructions: return to any er with worsening. Instructions: Acute Abdomen (Belly Pain), Leaving Against Medical Advice Forms: [facility] (Macedonian) - Clinical Impression Clinical Impression: Abdominal pain, Left against medical advice - Scribe Statement The provider has reviewed the documentation as recorded by the Scribnette Nayak All medical record entries made by the Scribe were at my direction and personally dictated by me. I have reviewed the chart and agree that the record accurately reflects my personal performance of the history, physical exam, medical decision making, and the department course for this patient. I have also personally directed, reviewed, and agree with the discharge instructions and disposition.
[2018-06-10] MEDS ORDERED: Sodium Chloride 0.9% 1,000 ML ONE (22:24)
[2018-06-10] MEDS ORDERED: Morphine 4 MG/ML VIAL ONE ×2 (22:24→23:12)
[2018-06-10 22:25] LABS: BASO % 0.4 % (0.0-2.0); EOS # 0.4 K/uL (0.0-0.7); EOS % 8.8 % (0.0-4.0); HEMOGLOBIN 10.3 g/dL (11.0-16.0); LYMPH # 1.2 K/uL (1.0-4.3); LYMPH % 24.8 % (20.0-40.0); MEAN CELL VOLUME 85.5 fL (81.0-99.0); MEAN CORPUSCULAR HEMOGLOBIN 28.8 pg (27.0-31.0); MEAN CORPUSCULAR HGB CONC 33.7 g/dL (33.0-37.0); MEAN PLATELET VOLUME 8.3 fL (7.2-11.7); MONO # 0.4 K/uL (0.0-0.8); MONO % 9.2 % (0.0-10.0); NEUT # 2.7 K/uL (1.8-7.0); NEUT % 56.8 % (50.0-75.0); NRBC % 0.1 % (0.0-2.0); RBC 3.58 Mil/uL (3.80-5.20); RED CELL DISTRIBUTION WIDTH 18.7 % (11.5-14.5); WHITE BLOOD COUNT 4.8 K/uL (4.8-10.8)
[2018-06-10 22:40] LABS: PROTHROMBIN TIME 10.5 SECONDS (9.7-12.2)
[2018-06-10 23:06] LABS: ALBUMIN 3.5 g/dL (3.5-5.0); ALT/SGPT 60 U/L (9-52); AST/SGOT 32 U/L (14-36); BLOOD UREA NITROGEN 19 mg/dL (7-17); CALCIUM 8.4 mg/dl (8.6-10.4); GFR NON-AFRICAN AMERICAN > 60; LIPASE 88 U/L (23-300)
[2018-06-10 23:32] LABS: ALB/GLOB RATIO 1.5 (1.0-2.1)
[2018-06-10 23:51] VITALS: BP 107/64; PULSE 88; RESP 16; TEMP 98
[2018-06-11 00:01] VITALS: O2SAT 99
--- NOTE | 2018-06-11 11:40 | RAD ---
Date of service: 06/10/2018 HISTORY: Abdominal pain. COMPARISON: Comparison chest 03/27/2018. Comparison also made with CTA chest dated 10/24/2017. FINDINGS: In situ right IJ MediPort tip in the SVC. 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 PLEURA: No significant pleural effusion identified, no pneumothorax apparent. CARDIOVASCULAR: No aortic atherosclerotic calcification present. Normal cardiac size. No pulmonary vascular congestion. OSSEOUS STRUCTURES: No significant abnormalities. VISUALIZED UPPER ABDOMEN: Normal. OTHER FINDINGS: None. 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
== END 2018-06-10 23:51 | disposition left against medical advice (07) ==
LOC: C.ER 21:03
DX: R10.9 Unspecified abdominal pain (principal); Z85.72 Personal history of non-Hodgkin lymphomas
CPT/HCPCS: 71045; 80053; 83690; 85025; 85610; 85730; 96361; 96374; 96375; 96376; 99284; C9113; J2270; J2405; J7030

== ENCOUNTER 2018-06-30 23:18 | Emergency (ER) | payer MEDICAID ==
[2018-06-30 23:18] VITALS: BMI 26.2
[2018-06-30] MEDS ORDERED: Sodium Chloride 0.9% 1,000 ML IV ONE ×2 (23:50→23:51)
--- NOTE | 2018-06-30 23:50 | C.PDOC ---
Chief Complaint (Nursing): Abdominal Pain History Per: Patient History/Exam Limitations: no limitations Onset/Duration Of Symptoms: Days Current Symptoms Are (Timing): Still Present Associated Symptoms: Other (Generalized body aches) Exacerbating Factors: None Alleviating Factors: None Recent travel outside of the [place]: No Abnormal Vaginal Bleeding: No Past Medical History Vital Signs: Last Vital Signs Temp 97.5 F L 06/30/18 23:21 Pulse 88 06/30/18 23:21 Resp 20 06/30/18 23:21 BP 112/68 06/30/18 23:21 Pulse Ox 100 06/30/18 23:21 - Medical History PMH: Back Problems Family History: States: Unknown Family Hx - Social History Hx Tobacco Use: No Hx Alcohol Use: No Hx Substance Use: No - Immunization History Hx Tetanus Toxoid Vaccination: No Hx Influenza Vaccination: No Hx Pneumococcal Vaccination: No ED Course And Treatment O2 Sat by Pulse Oximetry: 100 Disposition - Disposition Forms: [employer] (Turkmen)
--- NOTE | 2018-06-30 23:56 | C.PDOC ---
History Of Present Illness 33 year old female presents to the ER with a complaint of generalized body aches for the past few days. Hx of chemo, last treatment 10 days ago. Denies fever or chills. Chief Complaint (Nursing): Abdominal Pain History Per: Patient History/Exam Limitations: no limitations Onset/Duration Of Symptoms: Days Current Symptoms Are (Timing): Still Present Recent travel outside of the [place]: No Past Medical History Reviewed: Historical Data, Nursing Documentation, Vital Signs Vital Signs: Last Vital Signs Temp 97.5 F L 06/30/18 23:21 Pulse 88 06/30/18 23:21 Resp 20 06/30/18 23:21 BP 112/68 06/30/18 23:21 Pulse Ox 100 06/30/18 23:21 - Medical History PMH: Back Problems Family History: States: Unknown Family Hx - Social History Hx Tobacco Use: No Hx Alcohol Use: No Hx Substance Use: No - Immunization History Hx Tetanus Toxoid Vaccination: No Hx Influenza Vaccination: No Hx Pneumococcal Vaccination: No Review Of Systems Constitutional: Negative for: Fever, Chills Cardiovascular: Negative for: Chest Pain, Orthopnea Respiratory: Negative for: Cough, Shortness of Breath Gastrointestinal: Negative for: Nausea, Vomiting Musculoskeletal: Positive for: Other (Generalized body aches) Neurological: Negative for: Weakness, Numbness Physical Exam - Physical Exam Appears: Non-toxic, Other (Moderate distress due to pain) Skin: Normal Color, Warm, Dry Head: Atraumatic, Normacephalic Eye(s): bilateral: Normal Inspection Oral Mucosa: Moist Neck: Normal, Supple Chest: Symmetrical, No Tenderness Cardiovascular: Rhythm Regular Respiratory: Normal Breath Sounds, No Rales, No Rhonchi, No Wheezing Gastrointestinal/Abdominal: Soft, No Tenderness Back: No CVA Tenderness Neurological/Psych: Oriented x3, Normal Speech ED Course And Treatment - Laboratory Results Result Diagrams: 07/01/18 00:20 07/01/18 00:20 O2 Sat by Pulse Oximetry: 100 (Room air) Pulse Ox Interpretation: Normal Progress Note: Blood work and urinalysis ordered. IV fluids, morphine, and zofran administered. On reevaluation, patient reports feeling better, will discharge home. Disposition Counseled Patient/Family Regarding: Diagnosis - Disposition Referrals: [facility] [Outside] Disposition: HOME/ ROUTINE Disposition Time: 02:58 Condition: IMPROVED Instructions: Chronic Pain (DC) Forms: [facility] ([place] Islander) - POA Present On Arrival: None - Clinical Impression Clinical Impression: Body aches, Status post chemotherapy - Scribe Statement The provider has reviewed the documentation as recorded by the Scribnette Nayak All medical record entries made by the Scribe were at my direction and personally dictated by me. I have reviewed the chart and agree that the record accurately reflects my personal performance of the history, physical exam, medical decision making, and the department course for this patient. I have also personally directed, reviewed, and agree with the discharge instructions and disposition.
[2018-07-01 00:44] LABS: BASO # 0.2 K/uL (0.0-0.2); BASO % 3.6 % (0.0-2.0); EOS # 0.2 K/uL (0.0-0.7); EOS % 3.7 % (0.0-4.0); HEMOGLOBIN 10.4 g/dL (11.0-16.0); LYMPH # 1.5 K/uL (1.0-4.3); LYMPH % 34.4 % (20.0-40.0); MEAN CELL VOLUME 87.9 fL (81.0-99.0); MEAN CORPUSCULAR HEMOGLOBIN 28.5 pg (27.0-31.0); MEAN CORPUSCULAR HGB CONC 32.5 g/dL (33.0-37.0); MEAN PLATELET VOLUME 8.7 fL (7.2-11.7); MONO # 1.2 K/uL (0.0-0.8); MONO % 27.5 % (0.0-10.0); NEUT # 1.3 K/uL (1.8-7.0); NEUT % 30.8 % (50.0-75.0); PLATELET COUNT 304 K/uL (130-400); RBC 3.63 Mil/uL (3.80-5.20); RED CELL DISTRIBUTION WIDTH 17.7 % (11.5-14.5); WHITE BLOOD COUNT 4.4 K/uL (4.8-10.8)
[2018-07-01 00:47] LABS: ALB/GLOB RATIO 1.6 (1.0-2.1); ALBUMIN 4.1 g/dL (3.5-5.0); ALT/SGPT 18 U/L (9-52); AST/SGOT 26 U/L (14-36); BLOOD UREA NITROGEN 19 mg/dL (7-17); CALCIUM 9.4 mg/dl (8.6-10.4); GFR NON-AFRICAN AMERICAN > 60
[2018-07-01] MEDS ORDERED: Morphine 4 MG/ML VIAL ONE (01:41)
[2018-07-01] MEDS ORDERED: Morphine 4 MG/ML VIAL IV STA (01:42)
[2018-07-01 02:20] LABS: BANDS 3 % (0-2); EOSINOPHIL 6 % (0-4); LYMPHOCYTE 31 % (20-40); MONOCYTE 29 % (0-10); NEUTROPHIL 31 % (50-75); PLATELET ESTIMATE NORMAL (NORMAL); TOTAL CELLS COUNTED 100
[2018-07-01 04:32] VITALS: BP 110/72; PULSE 76; RESP 16; TEMP 98.3; O2SAT 97
== END 2018-07-01 03:55 | disposition home or self-care (01) ==
LOC: C.ER 23:18
DX: R52 Pain, unspecified (principal); Z92.21 Personal history of antineoplastic chemotherapy
CPT/HCPCS: 80053; 82550; 85025; 96374; 96375; 96376; 99285; J2270; J2405; J7030

== ENCOUNTER 2018-07-06 23:36 | Emergency (ER) | payer MEDICAID ==
[2018-07-06 23:36] VITALS: BMI 26.2
[2018-07-07] MEDS ORDERED: Sodium Chloride 0.9% 1,000 ML IV ONE (00:49)
[2018-07-07] MEDS ORDERED: Sodium Chloride 0.9% 500 ML IV ONE (00:49)
[2018-07-07] MEDS ORDERED: Sodium Chloride 0.9% 1,000 ML ONE (00:59)
[2018-07-07] MEDS ORDERED: Morphine 4 MG/ML VIAL ONE (00:59)
[2018-07-07 01:00] LABS: BASO % 0.5 % (0.0-2.0); EOS # 0.5 K/uL (0.0-0.7); EOS % 8.8 % (0.0-4.0); HEMOGLOBIN 10.1 g/dL (11.0-16.0); LYMPH # 1.7 K/uL (1.0-4.3); LYMPH % 28.4 % (20.0-40.0); MEAN CORPUSCULAR HGB CONC 32.9 g/dL (33.0-37.0); MEAN PLATELET VOLUME 8.4 fL (7.2-11.7); MONO # 0.9 K/uL (0.0-0.8); NEUT # 2.7 K/uL (1.8-7.0); NEUT % 46.3 % (50.0-75.0); RBC 3.5 Mil/uL (3.80-5.20); RED CELL DISTRIBUTION WIDTH 17.8 % (11.5-14.5); WHITE BLOOD COUNT 5.8 K/uL (4.8-10.8)
--- NOTE | 2018-07-07 01:11 | C.PDOC ---
History Of Present Illness 33 year old female presents to the ER with generalized body aches. Patient has a Hx of lymphoma, has frequent ER visits for pain requiring morphine. Chief Complaint (Nursing): Back Pain History Per: Patient History/Exam Limitations: no limitations Onset/Duration Of Symptoms: Hrs Current Symptoms Are (Timing): Still Present Quality Of Discomfort: Unable To Describe Recent travel outside of the [place]: No Past Medical History Reviewed: Historical Data, Nursing Documentation, Vital Signs Vital Signs: Last Vital Signs Temp 97.5 F L 07/06/18 23:56 Pulse 83 07/06/18 23:56 Resp 22 07/06/18 23:56 BP 103/65 07/06/18 23:56 Pulse Ox 100 07/06/18 23:56 - Medical History PMH: Back Problems Family History: States: Unknown Family Hx - Social History Hx Tobacco Use: No Hx Alcohol Use: No Hx Substance Use: No - Immunization History Hx Tetanus Toxoid Vaccination: No Hx Influenza Vaccination: No Hx Pneumococcal Vaccination: No Review Of Systems Constitutional: Negative for: Fever, Chills Cardiovascular: Negative for: Chest Pain, Palpitations Respiratory: Negative for: Cough, Shortness of Breath Gastrointestinal: Negative for: Nausea, Vomiting Musculoskeletal: Positive for: Other (Body aches) Neurological: Negative for: Weakness, Numbness Physical Exam - Physical Exam Appears: Non-toxic, In Acute Distress Skin: Normal Color, Warm, Dry Head: Atraumatic, Normacephalic Eye(s): bilateral: Normal Inspection Oral Mucosa: Moist Neck: Normal, Supple Chest: Symmetrical, No Tenderness Cardiovascular: Rhythm Regular Respiratory: Normal Breath Sounds, No Rales, No Rhonchi, No Wheezing Gastrointestinal/Abdominal: Soft, No Tenderness Back: No CVA Tenderness Neurological/Psych: Oriented x3, Normal Speech, Other (No focal deficit) ED Course And Treatment - Laboratory Results Result Diagrams: 07/07/18 00:57 07/07/18 00:57 O2 Sat by Pulse Oximetry: 100 (Room air) Pulse Ox Interpretation: Normal Progress Note: Blood work ordered. IV fluids, zofran, and morphine administered. Patient noticed to be sleeping well in no distress, will be discharged in the morning. Disposition Counseled Patient/Family Regarding: Diagnosis - Disposition Referrals: at [facility] [Outside] Disposition: HOME/ ROUTINE Disposition Time: 05:02 Condition: STABLE Instructions: Chronic Pain Forms: [facility] (Djiboutian) - POA Present On Arrival: None - Clinical Impression Clinical Impression: Muscular pain - Scribe Statement The provider has reviewed the documentation as recorded by the Scribe August Nayak All medical record entries made by the Scribe were at my direction and personally dictated by me. I have reviewed the chart and agree that the record accurately reflects my personal performance of the history, physical exam, medical decision making, and the department course for this patient. I have also personally directed, reviewed, and agree with the discharge instructions and disposition.
[2018-07-07 01:16] LABS: ALB/GLOB RATIO 1.5 (1.0-2.1); ALBUMIN 4.1 g/dL (3.5-5.0); ALT/SGPT 24 U/L (9-52); AST/SGOT 31 U/L (14-36); BLOOD UREA NITROGEN 22 mg/dL (7-17); CALCIUM 9.2 mg/dl (8.6-10.4); GFR NON-AFRICAN AMERICAN > 60
[2018-07-07 05:11] VITALS: BP 93/64; PULSE 82; RESP 20; TEMP 98.1; O2SAT 99
== END 2018-07-07 05:12 | disposition home or self-care (01) ==
LOC: C.ER 23:36
DX: M79.10 Myalgia, unspecified site (principal)
CPT/HCPCS: 80053; 85025; 96361; 96374; 96375; 99283; J2270; J2405; J7030; J7040

== ENCOUNTER 2018-07-13 20:02 | Emergency (ER) | payer MEDICAID ==
[2018-07-13 20:02] VITALS: BMI 26.2
[2018-07-13] MEDS ORDERED: Sodium Chloride 0.9% 1,000 ML IV ONE (20:43)
[2018-07-13] MEDS ORDERED: Morphine 4 MG/ML VIAL ONE ×2 (20:45→21:38)
--- NOTE | 2018-07-13 20:47 | C.PDOC ---
History Of Present Illness 33 y/o female with a PMHx of Hodgkin's lymphoma (last chemo 1 month ago), presents to the ED for evaluation of recurrent vomiting and pain. Patient notes that since her diagnosis, she has had intermittent episodes of severe pain most ly in her back but sometimes generalized throughout her body. Episodes are associated with nausea, vomiting, and generalized weakness. This afternoon patient vomited a couple of times and began feeling generally weak. No diarrhea. She does not take any pain meds at home. Patient was seen here last week for similar symptoms. Of note patient had outpatient PET scan earlier today. Time Seen by Provider: 07/13/18 20:34 Chief Complaint (Nursing): GI Problem History Per: Patient History/Exam Limitations: no limitations Onset/Duration Of Symptoms: Intermittent Episodes Current Symptoms Are (Timing): Still Present Severity: Severe Associated Symptoms: Nausea, Vomiting Past Medical History Reviewed: Historical Data, Nursing Documentation, Vital Signs Vital Signs: Last Vital Signs Temp 98.1 F 07/13/18 20:13 Pulse 78 07/13/18 20:13 Resp 14 07/13/18 20:13 BP 131/71 07/13/18 20:13 Pulse Ox 97 07/13/18 20:13 - Medical History PMH: Back Problems, Malignancy (Hodgkins lymphoma) Family History: States: Unknown Family Hx - Social History Hx Tobacco Use: No Hx Alcohol Use: No Hx Substance Use: No - Immunization History Hx Tetanus Toxoid Vaccination: No Hx Influenza Vaccination: No Hx Pneumococcal Vaccination: No Review Of Systems Constitutional: Positive for: Weakness (generalized). Negative for: Fever, Chills Cardiovascular: Negative for: Chest Pain Respiratory: Negative for: Cough, Shortness of Breath Gastrointestinal: Positive for: Nausea, Vomiting Musculoskeletal: Positive for: Back Pain Skin: Negative for: Rash Neurological: Negative for: Numbness, Headache, Dizziness Physical Exam - Physical Exam Appears: No Acute Distress, Chronically Ill, Other (Shaking, appears uncomfortable) Skin: Warm, Dry, No Rash Head: Atraumatic, Normacephalic Eye(s): bilateral: Normal Inspection, PERRL, EOMI Neck: Normal ROM Chest: Symmetrical Cardiovascular: Rhythm Regular, No Murmur Respiratory: No Rales, No Rhonchi, No Wheezing, Other (Lungs clear, No respiratory distress) Gastrointestinal/Abdominal: Soft, No Tenderness, No Distention, No Guarding, No Rebound Extremity: Bilateral: Atraumatic, Normal ROM Neurological/Psych: Oriented x3, Normal Speech, Normal Cranial Nerves Gait: Steady ED Course And Treatment - Laboratory Results Result Diagrams: 07/13/18 20:49 07/13/18 20:49 Lab Interpretation: No Acute Changes O2 Sat by Pulse Oximetry: 97 (RA) Pulse Ox Interpretation: Normal Progress Note: Administered IV fluids, 8 mg IV zofran, and 4 mg IV morphine. Labs and CXR ordered and reviewed. 9:30 Patient still c/o generalized pain associated with mild dizziness. Review of prior visits shows patient often requires multiple doses of medication to get pain relief. Additional Morphine ordered. Reevaluation Time: 22:55 Reassessment Condition: Improved (Patient resting quietly) Disposition Counseled Patient/Family Regarding: Studies Performed, Diagnosis, Need For Followup - Disposition Disposition: HOME/ ROUTINE Disposition Time: 22:56 Condition: IMPROVED Instructions: Muscle and Bone Pain (DC) Forms: [employer] (Cameroonian) - Clinical Impression Clinical Impression: Body aches, Hodgkin lymphoma - Scribe Statement The provider has reviewed the documentation as recorded by the Efrain Anne Provider Attestation: All medical record entries made by the Efrain were at my direction and personally dictated by me. I have reviewed the chart and agree that the record accurately reflects my personal performance of the history, physical exam, medical decision making, and the department course for this patient. I have also personally directed, reviewed, and agree with the discharge instructions and disposition.
[2018-07-13] MEDS ORDERED: Sodium Chloride 0.9% 1,000 ML ONE (20:56)
[2018-07-13 20:58] LABS: BASO # 0.1 K/uL (0.0-0.2); BASO % 1.2 % (0.0-2.0); EOS # 1.1 K/uL (0.0-0.7); EOS % 17.4 % (0.0-4.0); HEMOGLOBIN 11.1 g/dL (11.0-16.0); LYMPH # 1.8 K/uL (1.0-4.3); LYMPH % 28.6 % (20.0-40.0); MEAN CORPUSCULAR HEMOGLOBIN 29.6 pg (27.0-31.0); MEAN CORPUSCULAR HGB CONC 33.6 g/dL (33.0-37.0); MONO # 0.8 K/uL (0.0-0.8); MONO % 12.6 % (0.0-10.0); NEUT # 2.5 K/uL (1.8-7.0); NEUT % 40.2 % (50.0-75.0); RBC 3.76 Mil/uL (3.80-5.20); RED CELL DISTRIBUTION WIDTH 17.2 % (11.5-14.5); WHITE BLOOD COUNT 6.2 K/uL (4.8-10.8)
[2018-07-13 21:04] LABS: SQUAMOUS EPITHIAL 1 /hpf (0-5); URINE BILIRUBIN NEGATIVE (NEGATIVE); URINE BLOOD NEGATIVE (NEGATIVE); URINE CLARITY Hazy (Clear); URINE COLOR Yellow (YELLOW); URINE GLUCOSE (UA) NORMAL (Normal); URINE LEUKOCYTE ESTERASE 2+ Leu/uL (Negative); URINE PROTEIN NEGATIVE (NEGATIVE); URINE UROBILINOGEN NORMAL mg/dL (0.2-1.0)
[2018-07-13 21:14] LABS: ALB/GLOB RATIO 1.6 (1.0-2.1); ALBUMIN 4.2 g/dL (3.5-5.0); ALT/SGPT 20 U/L (9-52); AST/SGOT 27 U/L (14-36); BLOOD UREA NITROGEN 17 mg/dL (7-17); CALCIUM 9.4 mg/dl (8.6-10.4); GFR NON-AFRICAN AMERICAN > 60
[2018-07-13 23:11] VITALS: BP 130/70; PULSE 80; RESP 20; TEMP 98.2; O2SAT 98
--- NOTE | 2018-07-14 11:27 | RAD ---
HISTORY: SOB COMPARISON: Chest x-ray performed 06/10/18 TECHNIQUE: Chest PA and lateral FINDINGS: Right-sided MediPort extends to the SVC. Surgical clips project over the left lung apex. LUNGS: Mild medial right lower lobe opacity. Please note that chest x-ray has limited sensitivity for the detection of pulmonary masses. PLEURA: No significant pleural effusion identified. No definite pneumothorax . CARDIOVASCULAR: The cardiomediastinal silhouette appears within normal limits of size. No atherosclerotic calcification present. OSSEOUS STRUCTURES: No acute osseous abnormality identified. VISUALIZED UPPER ABDOMEN: Unremarkable. OTHER FINDINGS: None. IMPRESSION: Medial right lower lobe opacity likely reflects atelectasis; developing infection not excluded in the proper clinical setting. Right-sided MediPort extends the SVC. Surgical clips project over the left lung apex. Study marked for PA review.
== END 2018-07-13 23:10 | disposition home or self-care (01) ==
LOC: C.ER 20:02
DX: C81.90 Hodgkin lymphoma, unspecified, unspecified site (principal); R52 Pain, unspecified
CPT/HCPCS: 71046; 80053; 81001; 85025; 87086; 96361; 96374; 96375; 96376; 99283; J2270; J2405; J7030

== ENCOUNTER 2018-07-16 21:18 | Emergency (ER) | payer MEDICAID ==
[2018-07-16 21:18] VITALS: BMI 26.2
[2018-07-16] MEDS ORDERED: Sodium Chloride 0.9% 1,000 ML IV STA (22:11)
[2018-07-16] MEDS ORDERED: Sodium Chloride 0.9% 1,000 ML ONE (22:18)
[2018-07-16] MEDS ORDERED: Morphine 4 MG/ML VIAL ONE ×2 (22:18→23:38)
[2018-07-16 22:29] LABS: BASO # 0.1 K/uL (0.0-0.2); BASO % 1.1 % (0.0-2.0); EOS # 0.8 K/uL (0.0-0.7); EOS % 12.1 % (0.0-4.0); HEMOGLOBIN 11.9 g/dL (11.0-16.0); LYMPH # 1.7 K/uL (1.0-4.3); LYMPH % 26.7 % (20.0-40.0); MEAN CELL VOLUME 87.7 fL (81.0-99.0); MEAN CORPUSCULAR HEMOGLOBIN 29.1 pg (27.0-31.0); MEAN CORPUSCULAR HGB CONC 33.1 g/dL (33.0-37.0); MEAN PLATELET VOLUME 8.3 fL (7.2-11.7); MONO # 0.8 K/uL (0.0-0.8); MONO % 12.5 % (0.0-10.0); NEUT % 47.6 % (50.0-75.0); RBC 4.11 Mil/uL (3.80-5.20); RED CELL DISTRIBUTION WIDTH 17.1 % (11.5-14.5); WHITE BLOOD COUNT 6.2 K/uL (4.8-10.8)
--- NOTE | 2018-07-16 22:51 | C.PDOC ---
History Of Present Illness 33 year old female, whose PMHx includes Hodgkin's lymphoma (last chemotherapy 3 weeks ago), presents to the ED for evaluation of generalized body aches, nausea and weakness which began at around 4-5pm today. Patient notes that since her diagnosis, she has had intermittent episodes of similar symptoms and has been seen in the ED for the same in the past. Patient denies leg swelling, vomiting. Time Seen by Provider: 07/16/18 21:45 Chief Complaint (Nursing): Chest Pain History Per: Patient History/Exam Limitations: no limitations Onset/Duration Of Symptoms: Hrs Past Medical History Reviewed: Historical Data, Nursing Documentation, Vital Signs Vital Signs: Last Vital Signs Temp 97.2 F L 07/16/18 21:27 Pulse 81 07/16/18 22:25 Resp 22 07/16/18 22:25 BP 100/62 07/16/18 22:25 Pulse Ox 100 07/16/18 22:25 - Medical History PMH: Back Problems, Malignancy (Hodgkins lymphoma) Surgical History: No Surg Hx Family History: States: Unknown Family Hx - Social History Hx Tobacco Use: No Hx Alcohol Use: No Hx Substance Use: No - Immunization History Hx Tetanus Toxoid Vaccination: No Hx Influenza Vaccination: No Hx Pneumococcal Vaccination: No Review Of Systems Except As Marked, All Systems Reviewed And Found Negative. Gastrointestinal: Negative for: Vomiting Musculoskeletal: Negative for: Other (leg swelling ) Physical Exam - Physical Exam Additional Physical Exam Comments: Constitutional: No acute distress. Appears uncomfortable. Head: Normocephalic. Atraumatic. Eyes: PERRL. ENT: Moist mucous membranes. Neck: Supple. Cardiovascular: Regular rate. Radial pulse 2+ bilaterally. Chest: No tenderness. Respiratory: Clear to auscultation bilaterally. 98% oxygen saturation on room air. GI: Soft. Nontender. Nondistended. Back: No CVA tenderness. Musculoskeletal: No tenderness or swelling of extremities. Skin: No rash. Neurologic: Alert, no focal deficit. ED Course And Treatment - Laboratory Results Result Diagrams: 07/16/18 22:20 07/16/18 22:20 O2 Sat by Pulse Oximetry: 98 (on room air ) Medical Decision Making Medical Decision Making: Progress: Bloodwork and EKG ordered and reviewed. Morphine IVP, Zofran IVP, and IV Fluids given. Patient felt well after ED treatment and wishes to be discharged home. Disposition - Disposition Referrals: Nael Persaud, SANTO, OPERATOR ENGINEER [Advanced Practice Nurse] - Disposition: HOME/ ROUTINE Disposition Time: 00:21 Condition: STABLE Instructions: Chemotherapy Forms: [facility] (Indian) - Clinical Impression Clinical Impression: Body aches - Scribe Statement The provider has reviewed the documentation as recorded by the Scribe (Teodora Valladares) Provider Attestation: All medical record entries made by the Scribe were at my direction and personally dictated by me. I have reviewed the chart and agree that the record accurately reflects my personal performance of the history, physical exam, medical decision making, and the department course for this patient. I have also personally directed, reviewed, and agree with the discharge instructions and disposition.
[2018-07-16 22:52] VITALS: O2SAT 98
[2018-07-16 22:53] LABS: ALB/GLOB RATIO 1.6 (1.0-2.1); ALBUMIN 4.4 g/dL (3.5-5.0); ALT/SGPT 34 U/L (9-52); AST/SGOT 36 U/L (14-36); BLOOD UREA NITROGEN 24 mg/dL (7-17); CALCIUM 9.6 mg/dl (8.6-10.4); GFR NON-AFRICAN AMERICAN > 60; LIPASE 84 U/L (23-300)
[2018-07-16 23:45] VITALS: RESP 16
[2018-07-17 00:30] VITALS: BP 106/61; PULSE 78; TEMP 98.1
--- NOTE | 2018-07-19 12:15 | CARD ---
APPROVED REPORT Date of service: 07/16/2018 EKG Measurement Heart [id number] <Conclusion> Normal sinus rhythm with sinus arrhythmia Normal ECG
== END 2018-07-17 00:31 | disposition home or self-care (01) ==
LOC: C.ER 21:18
DX: M79.10 Myalgia, unspecified site (principal); Z85.71 Personal history of Hodgkin lymphoma
CPT/HCPCS: 80053; 83690; 85025; 93005; 96361; 96374; 96375; 96376; 99285; J2270; J2405; J7030

== ENCOUNTER 2018-07-20 23:35 | Emergency (ER) | payer MEDICAID ==
[2018-07-20 23:35] VITALS: BMI 26.2
[2018-07-21] MEDS ORDERED: Sodium Chloride 0.9% 500 ML IV ONE (00:34)
[2018-07-21] MEDS ORDERED: Sodium Chloride 0.9% 1,000 ML IV ONE (00:34)
[2018-07-21] MEDS ORDERED: Morphine 4 MG/ML VIAL ONE ×2 (00:43→01:52)
[2018-07-21] MEDS ORDERED: Sodium Chloride 0.9% 1,000 ML ONE (00:43)
--- NOTE | 2018-07-21 00:47 | C.PDOC ---
History Of Present Illness 33 year old female with PMHx of lymphoma. presents to the ED complaining of body aches and back pain. Reports she finished chemotherapy two weeks ago. Denies any fever, chills, abdominal pain, shortness of breath, chest pain, or any other complaints. Chief Complaint (Nursing): Back Pain History Per: Patient History/Exam Limitations: no limitations Onset/Duration Of Symptoms: Days Current Symptoms Are (Timing): Still Present Quality Of Discomfort: "Pain" Previous Symptoms: Back Pain Associated Symptoms: None Past Medical History Reviewed: Historical Data, Nursing Documentation, Vital Signs Vital Signs: Last Vital Signs Temp 97.7 F 07/20/18 23:57 Pulse 93 H 07/20/18 23:57 Resp 20 07/20/18 23:57 BP 98/60 L 07/20/18 23:57 Pulse Ox 99 07/20/18 23:57 - Medical History PMH: Back Problems, Malignancy (Hodgkins lymphoma) Family History: States: Unknown Family Hx - Social History Hx Tobacco Use: No Hx Alcohol Use: No Hx Substance Use: No - Immunization History Hx Tetanus Toxoid Vaccination: No Hx Influenza Vaccination: No Hx Pneumococcal Vaccination: No Review Of Systems Except As Marked, All Systems Reviewed And Found Negative. Constitutional: Positive for: Other (bodyaches). Negative for: Fever, Chills Cardiovascular: Negative for: Chest Pain Respiratory: Negative for: Shortness of Breath Gastrointestinal: Negative for: Abdominal Pain Musculoskeletal: Positive for: Back Pain Neurological: Negative for: Weakness, Numbness Physical Exam - Physical Exam Appears: Non-toxic, Other (acute distress due to pain ) Skin: Warm, Dry Head: Normacephalic Eye(s): bilateral: Normal Inspection Nose: Normal Oral Mucosa: Moist Neck: Supple Chest: Symmetrical Cardiovascular: Rhythm Regular Respiratory: Normal Breath Sounds, No Rales, No Rhonchi, No Wheezing Gastrointestinal/Abdominal: Soft, No Tenderness Neurological/Psych: Oriented x3, Normal Speech Gait: Steady ED Course And Treatment - Laboratory Results Result Diagrams: 07/21/18 00:40 07/21/18 00:40 O2 Sat by Pulse Oximetry: 99 Medical Decision Making Medical Decision Making: Plan - Morphine 4mg IVP - Zofran 4mg IVP - IV Fluids Disposition - Disposition Referrals: [facility] [Outside] Disposition: HOME/ ROUTINE Disposition Time: 03:15 Condition: STABLE Instructions: Chronic Pain (DC) Forms: [facility] (Faroese) - POA Present On Arrival: None - Clinical Impression Clinical Impression: Body aches, 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 I have reviewed the chart and agree that the record accurately reflects my personal performance of the history, physical exam, medical decision making, and the department course for this patient. I have also personally directed, reviewed, and agree with the discharge instructions and disposition.
[2018-07-21 00:48] LABS: BASO # 0.1 K/uL (0.0-0.2); BASO % 1.2 % (0.0-2.0); EOS # 0.9 K/uL (0.0-0.7); EOS % 12.7 % (0.0-4.0); HEMOGLOBIN 11.6 g/dL (11.0-16.0); LYMPH # 1.9 K/uL (1.0-4.3); MEAN CELL VOLUME 88.1 fL (81.0-99.0); MEAN CORPUSCULAR HGB CONC 32.9 g/dL (33.0-37.0); MEAN PLATELET VOLUME 8.3 fL (7.2-11.7); MONO # 0.8 K/uL (0.0-0.8); MONO % 11.5 % (0.0-10.0); NEUT # 3.3 K/uL (1.8-7.0); NEUT % 47.6 % (50.0-75.0); NRBC % 0.1 % (0.0-2.0); RBC 3.99 Mil/uL (3.80-5.20); RED CELL DISTRIBUTION WIDTH 16.3 % (11.5-14.5)
[2018-07-21 01:02] LABS: ALB/GLOB RATIO 1.7 (1.0-2.1); ALBUMIN 4.4 g/dL (3.5-5.0); ALT/SGPT 19 U/L (9-52); AST/SGOT 27 U/L (14-36); BLOOD UREA NITROGEN 18 mg/dL (7-17); CALCIUM 9.6 mg/dl (8.6-10.4); GFR NON-AFRICAN AMERICAN > 60
[2018-07-21 03:06] VITALS: BP 100/69; PULSE 84; RESP 16; TEMP 98
[2018-07-21 03:17] VITALS: O2SAT 99
== END 2018-07-21 03:43 | disposition home or self-care (01) ==
LOC: C.ER 23:35
DX: M79.10 Myalgia, unspecified site (principal); G62.0 Drug-induced polyneuropathy; T45.1X5A Adverse effect of antineoplastic and immunosuppressive drugs, initial encounter; Y92.89 Other specified places as the place of occurrence of the external cause
CPT/HCPCS: 80053; 85025; 96374; 96375; 96376; 99284; J2270; J2405; J7030; J7040

== ENCOUNTER 2018-07-28 19:28 | Emergency (ER) | payer MEDICAID | END 2018-07-28 22:14 | disposition home or self-care (01) | LOC: C.ER 19:28 ==

== ENCOUNTER 2018-08-09 21:48 | Emergency (ER) | payer MEDICAID ==
[2018-08-09 21:48] VITALS: BMI 26.2
--- NOTE | 2018-08-09 22:24 | C.PDOC ---
History Of Present Illness 33 year old female presents to the ED c/o left sided chest wall pain.Reproducible. Patient reports she is feeling anxious about her radiation therapy, patient is being treated for lymphoma. Patient able to speak in complete sentences, denies fever, chills, SOB, palpitations, injury, fall, trauma, rash. Time Seen by Provider: 08/09/18 22:23 Chief Complaint (Nursing): Chest Pain History Per: Patient History/Exam Limitations: no limitations Onset/Duration Of Symptoms: Hrs Current Symptoms Are (Timing): Still Present Context: Other Severity: Moderate Pain Scale Rating Of: 4 Quality: "Pain" Associated Symptoms: denies: Nausea, Dyspnea Modifying Factors: None Exacerbating Factors: Turning, Movement Alleviating Factors: None Recent travel outside of the [place]: No Additional History Per: Patient Past Medical History Reviewed: Historical Data, Nursing Documentation, Vital Signs Vital Signs: Last Vital Signs Temp 97.5 F L 08/09/18 22:07 Pulse 83 08/09/18 22:07 Resp 18 08/09/18 22:07 BP 123/73 08/09/18 22:07 Pulse Ox 99 08/09/18 22:07 - Medical History PMH: Anxiety, Back Problems, Malignancy (Hodgkins lymphoma) Denies: Chronic Kidney Disease Surgical History: No Surg Hx Family History: States: No Known Family Hx - Social History Hx Tobacco Use: No Hx Alcohol Use: No Hx Substance Use: No - Immunization History Hx Tetanus Toxoid Vaccination: No Hx Influenza Vaccination: Yes Hx Pneumococcal Vaccination: Yes Review Of Systems Constitutional: Negative for: Fever, Chills Eyes: Negative for: Vision Change Cardiovascular: Positive for: Chest Pain. Negative for: Palpitations Respiratory: Negative for: Cough, Shortness of Breath Gastrointestinal: Negative for: Nausea, Vomiting, Abdominal Pain Skin: Negative for: Rash Neurological: Negative for: Weakness, Numbness, Headache, Dizziness Psych: Positive for: Anxiety Physical Exam - Physical Exam Appears: Non-toxic, No Acute Distress Skin: Warm, Dry, No Rash Head: Normacephalic Eye(s): bilateral: Normal Inspection Oral Mucosa: Moist Neck: Supple Chest: Symmetrical, Tenderness (reproducible), Other (right sided port) Cardiovascular: Rhythm Regular Respiratory: No Rales, No Rhonchi, No Wheezing Gastrointestinal/Abdominal: Soft, No Tenderness, No Guarding, No Rebound Back: No CVA Tenderness Extremity: No Tenderness Extremity: Bilateral: Atraumatic, Normal Color And Temperature, Normal ROM Neurological/Psych: Oriented x3, Normal Speech, Normal Cognition Gait: Steady ED Course And Treatment - Laboratory Results Result Diagrams: 08/09/18 22:59 08/09/18 22:59 ECG: Interpreted By Me, Viewed By Me ECG Rhythm: Sinus Rhythm (66), 1st Degree HB, Nonspecific Changes O2 Sat by Pulse Oximetry: 99 (ON RA) Pulse Ox Interpretation: Normal - Radiology CXR: Interpreted by Me, Viewed By Me Progress Note: Plan: - ABG. - VBG. - EKG. - Labs. - CXR. - Aspirin 325 mg PO. - Blood culture. - UA Medical Decision Making Medical Decision Making: I considered the following diagnoses: acute coronary syndrome, pulmonary embolism, lower respiratory infection, aortic dissection/aneurysm, pneumothorax, pericarditis, esophagitis/GERD, zoster and esophageal rupture but found them to be unlikely based on the history, physical exam, and diagnostics. My conclusions regarding the unlikely diagnoses were based on: the absence of significant EKG abnormalities, the lack of suggestive x-ray findings, the absence of significant abnormalities on cardiac monitoring, the absence of asymmetric pulses,. After the ativan, pt's chest pain resolved. Wants to go home. encouraged to return if symptoms recur Upon provider reevaluation patient is feeling better, is medically stable, and requires no further treatment in the ED at this time. Patient will be discharged home with Rx for ativan . Counseling was provided and all questions were answered regarding diagnosis and need for follow up with dr persaud. There is agreement to discharge plan. Return if symptoms persist or worsen. Disposition Counseled Patient/Family Regarding: Studies Performed, Diagnosis, Need For Followup, Rx Given - Disposition Referrals: Nael Persaud, SANTO, WEARING APPAREL PRESSER [Advanced Practice Nurse] - Disposition: HOME/ ROUTINE Disposition Time: 00:31 Condition: FAIR Additional Instructions: Please return if symptoms recur Prescriptions: Lorazepam [Ativan] 0.5 mg PO BID PRN #15 tab PRN Reason: Anxiety Instructions: Anxiety, Adult (DC), Chest Pain (DC) Forms: [facility] (Puerto Rican) - Clinical Impression Clinical Impression: Chest pain, Anxiety - Scribe Statement The provider has reviewed the documentation as recorded by the Scribe Michael Villegas All medical record entries made by the Scribe were at my direction and personally dictated by me. I have reviewed the chart and agree that the record accurately reflects my personal performance of the history, physical exam, medical decision making, and the department course for this patient. I have also personally directed, reviewed, and agree with the discharge instructions and d isposition.
[2018-08-09] MEDS ORDERED: Aspirin 325 mg EC Tablets PO STA (22:32)
[2018-08-09 23:03] LABS: BASO # 0.1 K/uL (0.0-0.2); BASO % 1.3 % (0.0-2.0); EOS # 0.3 K/uL (0.0-0.7); EOS % 6.3 % (0.0-4.0); LYMPH # 2.1 K/uL (1.0-4.3); LYMPH % 37.7 % (20.0-40.0); MEAN CORPUSCULAR HEMOGLOBIN 29.9 pg (27.0-31.0); MEAN PLATELET VOLUME 7.6 fL (7.2-11.7); MONO # 0.5 K/uL (0.0-0.8); MONO % 8.8 % (0.0-10.0); NEUT # 2.5 K/uL (1.8-7.0); NEUT % 45.9 % (50.0-75.0); RBC 3.67 Mil/uL (3.80-5.20); RED CELL DISTRIBUTION WIDTH 14.2 % (11.5-14.5); WHITE BLOOD COUNT 5.5 K/uL (4.8-10.8)
[2018-08-09 23:11] LABS: PROTHROMBIN TIME 11.4 SECONDS (9.7-12.2)
[2018-08-09 23:15] LABS: ALB/GLOB RATIO 1.7 (1.0-2.1); ALBUMIN 3.9 g/dL (3.5-5.0); ALT/SGPT 10 U/L (9-52); AST/SGOT 24 U/L (14-36); BLOOD UREA NITROGEN 18 mg/dL (7-17); CALCIUM 9.3 mg/dl (8.6-10.4); GFR NON-AFRICAN AMERICAN > 60
[2018-08-09 23:23] LABS: B-TYPE NATRIURETIC PEPTIDE 72.8 pg/mL (0-450)
[2018-08-10 02:03] VITALS: BP 126/79; PULSE 86; RESP 16; TEMP 97.6; O2SAT 98
--- NOTE | 2018-08-10 18:53 | CARD ---
APPROVED REPORT Date of service: 08/09/2018 EKG Measurement Heart [id number] <Conclusion> Sinus rhythm with marked sinus arrhythmia with 1st degree AV block Otherwise normal ECG
== END 2018-08-10 02:36 | disposition home or self-care (01) ==
LOC: C.ER 21:48
DX: F41.9 Anxiety disorder, unspecified (principal); R07.9 Chest pain, unspecified
CPT/HCPCS: 80053; 83735; 83880; 84484; 85025; 85610; 85730; 87040; 93005; 96374; 99284; J2060

== ENCOUNTER 2018-08-31 21:01 | Emergency (ER) | payer MEDICAID ==
[2018-08-31 21:01] VITALS: BMI 26.2
[2018-08-31 21:16] VITALS: TEMP 97.8
[2018-08-31] MEDS ORDERED: Sodium Chloride 0.9% 1,000 ML IV ONE (22:16)
--- NOTE | 2018-08-31 22:24 | C.PDOC ---
History Of Present Illness 33 year old female with PMHx of lymphoma presents to the ED c/o sudden onset epigastric abdominal pain associated with nausea and vomiting. Patient reports her pain radiated to her back and she has been unable to eat or drink anything. Patient reports having similar symptoms in the past but not as severe as this one. Patient states her daughter was sick at home yesterday with similar symptoms but today felt better. Patient recently finished chemotherapy and started radiation therapy. Time Seen by Provider: 08/31/18 22:04 Chief Complaint (Nursing): Abdominal Pain History Per: Patient History/Exam Limitations: no limitations Onset/Duration Of Symptoms: Hrs, Sudden Onset Current Symptoms Are (Timing): Still Present Severity: Severe Location Of Pain/Discomfort: Epigastric Radiation Of Pain To:: Back Quality Of Discomfort: "Pain" Associated Symptoms: Nausea, Vomiting, Loss Of Appetite. denies: Diarrhea, Urinary Symptoms Recent travel outside of the [place]: No Additional History Per: Patient Abnormal Vaginal Bleeding: No Past Medical History Reviewed: Historical Data, Nursing Documentation, Vital Signs Vital Signs: Last Vital Signs Temp 97.8 F 08/31/18 21:14 Pulse 84 08/31/18 21:14 Resp 18 08/31/18 21:14 BP 133/97 H 08/31/18 21:14 Pulse Ox 100 08/31/18 21:14 - Medical History PMH: Anxiety, Back Problems, Malignancy (Hodgkins lymphoma) Denies: Chronic Kidney Disease Surgical History: No Surg Hx Family History: States: Unknown Family Hx - Social History Hx Tobacco Use: No Hx Alcohol Use: No Hx Substance Use: No - Immunization History Hx Tetanus Toxoid Vaccination: No Hx Influenza Vaccination: Yes Hx Pneumococcal Vaccination: Yes Review Of Systems Constitutional: Negative for: Fever, Chills Cardiovascular: Negative for: Chest Pain Respiratory: Negative for: Shortness of Breath Gastrointestinal: Positive for: Nausea, Vomiting, Abdominal Pain Musculoskeletal: Positive for: Back Pain Skin: Negative for: Rash Neurological: Negative for: Weakness, Numbness, Headache, Dizziness Physical Exam - Physical Exam Appears: Non-toxic, In Acute Distress, Other (uncomfortable ) Skin: Normal Color, Warm, Dry, No Rash Head: Atraumatic, Normacephalic Eye(s): bilateral: Normal Inspection Oral Mucosa: Moist Neck: Normal ROM, Supple Chest: Symmetrical Cardiovascular: Rhythm Regular Respiratory: Normal Breath Sounds, No Rales, No Rhonchi, No Wheezing, Other (hyperventilating) Gastrointestinal/Abdominal: Soft, Tenderness (epigastrum), No Guarding, No Rebound Back: No CVA Tenderness Extremity: Normal ROM, No Tenderness, No Swelling Neurological/Psych: Oriented x3, Normal Speech, Normal Cognition Gait: Steady ED Course And Treatment - Laboratory Results Result Diagrams: 09/01/18 00:09 08/31/18 22:32 Lab Interpretation: Normal O2 Sat by Pulse Oximetry: 100 (ON RA) Pulse Ox Interpretation: Normal - CT Scan/US Abdomen US Other Rad Studies (CT/US): Read By Radiologist, Radiology Report Reviewed CT/US Interpretation: Date of service: 03/31/2018. History. Abdominal pain. Comparison. None. Technique. Sonographic evaluation of the abdomen. Findings. Liver. Measures 16 cm in length. Increased echogenicity of the liver parenchyma. Smooth contour. No mass. No intrahepatic bile duct dilatation. Gallbladder. Unremarkable. Gallstones. No sludge. No polyps. No gallbladder wall edema. Gallbladder wall measures 0.19 cm. Negative Cherokee sign. Common bile duct. Measures 0.4 cm. No stones. No dilatation. Pancreas. Unremarkable as visualized. No mass. No ductal dilatation. Right kidney. Measures 11.4 x 4.5 x 3.9 cm. Normal echogenicity. No calculus, mass, or hydronephrosis. Left kidney. Measures 8.9 x 5.5 x 4.8 cm. Normal echog enicity. No mass or hydronephrosis. Mid pole calcification versus stone measuring 0.9 x 0.6 x 0.8 cm. Spleen. Measures 9.9 cm in length. Normal echogenicity. No mass. Aorta. No aneurysmal dilatation. IVC. Unremarkable. Other Findings. None. Impression. Slightly echogenic fatty liver. Mobile gallbladder stone with negative Cherokee sign. Left kidney calcification versus stone. . Electronically signed on Aug 31, 2018 11:51:55 PM EDT by: Bon Lama M.D., NANDA Certified By ABR & CBCCT. Fellowship Trained MRI and CT Specialist Reevaluation Time: 00:23 Reassessment Condition: Improved (but still having some epigastric pain. No longer nauseated. Bentyl and Protonix ordered.) Medical Decision Making Medical Decision Making: Plan: * Labs * Morphine 2 mg IVP * IV fluids * Zofran 8 mg IVP * UA * Abdominal US Disposition Counseled Patient/Family Regarding: Studies Performed, Diagnosis, Need For Followup, Rx Given - Disposition Referrals: Nael Persaud, SANTO, ROD POINTER [Advanced Practice Nurse] - Disposition: HOME/ ROUTINE Disposition Time: 00:53 Condition: IMPROVED Prescriptions: Dicyclomine [Bentyl] 20 mg PO QID PRN #20 tab PRN Reason: Pain, Severe (8-10) Instructions: Acute Abdomen (Belly Pain), Adult (DC) Forms: [employer] (Pakistani) - Clinical Impression Clinical Impression: Epigastric abdominal pain - Scribe Statement The provider has reviewed the documentation as recorded by the Scribe Michael Villegas All medical record entries made by the Scribe were at my direction and personally dictated by me. I have reviewed the chart and agree that the record accurately reflects my personal performance of the history, physical exam, medical decision making, and the department course for this patient. I have also personally directed, reviewed, and agree with the discharge instructions and disposition.
[2018-08-31] MEDS ORDERED: Sodium Chloride 0.9% 1,000 ML ONE (22:25)
[2018-08-31 23:17] LABS: ALB/GLOB RATIO 1.6 (1.0-2.1); ALBUMIN 4.1 g/dL (3.5-5.0); ALT/SGPT 20 U/L (9-52); AST/SGOT 40 U/L (14-36); BLOOD UREA NITROGEN 15 mg/dL (7-17); CALCIUM 9.7 mg/dl (8.6-10.4); GFR NON-AFRICAN AMERICAN > 60; LIPASE 100 U/L (23-300)
[2018-09-01 00:13] LABS: BASO % 0.7 % (0.0-2.0); EOS # 0.3 K/uL (0.0-0.7); EOS % 5.2 % (0.0-4.0); LYMPH # 1.1 K/uL (1.0-4.3); LYMPH % 23.3 % (20.0-40.0); MEAN CELL VOLUME 88.8 fL (81.0-99.0); MEAN CORPUSCULAR HEMOGLOBIN 30.3 pg (27.0-31.0); MEAN CORPUSCULAR HGB CONC 34.2 g/dL (33.0-37.0); MEAN PLATELET VOLUME 8.2 fL (7.2-11.7); MONO # 0.6 K/uL (0.0-0.8); NEUT # 2.8 K/uL (1.8-7.0); NEUT % 57.8 % (50.0-75.0); RBC 3.94 Mil/uL (3.80-5.20); RED CELL DISTRIBUTION WIDTH 13.3 % (11.5-14.5); WHITE BLOOD COUNT 4.8 K/uL (4.8-10.8)
[2018-09-01 01:13] VITALS: BP 92/52; PULSE 62; RESP 22; O2SAT 96
--- NOTE | 2018-09-01 09:22 | US ---
Date of service: 08/31/2018 HISTORY: Abdominal pain COMPARISON: None. TECHNIQUE: Grayscale imaging was performed. FINDINGS: LIVER: Measures 16.0 cm. There is diffuse increased echogenicity of the liver parenchyma. No mass. No intrahepatic bile duct dilatation. GALLBLADDER: There is a solitary gallstone. No wall thickening, pericholecystic fluid or positive sonographic Rincon's COMMON BILE DUCT: Measures 4.0 mm. No stones. No dilatation. PANCREAS: Unremarkable as visualized. No mass. No ductal dilatation. RIGHT KIDNEY: Measures 11.4cm. Normal echogenicity. No calculus, mass, or hydronephrosis. LEFT KIDNEY: Measures 9.8cm. Normal echogenicity. No calculus, mass, or hydronephrosis. There is a 9 mm nonobstructing stone versus calcification in the interpolar region. SPLEEN: Normal in size and contour. No mass. AORTA: No aneurysmal dilatation. IVC: Unremarkable. OTHER FINDINGS: None. IMPRESSION: 1. Fatty liver. 2. Cholelithiasis. 3. 9 mm nonobstructing stone versus calcification in the left interpolar region. A preliminary report was provided by [employer].
== END 2018-09-01 01:06 | disposition home or self-care (01) ==
LOC: C.ER 21:01
DX: R10.13 Epigastric pain (principal)
CPT/HCPCS: 76700; 80053; 83690; 84703; 85025; 96361; 96372; 96374; 96375; 99285; C9113; J0500; J2270; J2405; J7030

== ENCOUNTER 2018-10-01 00:22 | Emergency (ER) | payer MEDICAID ==
[2018-10-01 00:22] VITALS: BMI 26.2
--- NOTE | 2018-10-01 01:29 | C.PDOC ---
History Of Present Illness 33 year old female with PMHx of Hodgkin's lymphoma presents to the ED c/o worsening right upper chest/lower side neck/upper shoulder pain that started today, patient reports symptoms have been present for the past week. Patient is currently being treated at [facility]. Patient saw her Oncologist on 09/28/18, had an US done and was diagnosed with a clot. Patient also has a right chest port, currently taking Eliquis. Patient reports today symptoms more painful than usual. Patient states she was told "clot needs to be address first and worry about port later". Patient denies fever, chills, headche, CP, SOB, palpitations, rash, weakness, numbness. MDM PT ADVISED KNOWN HO RECENT BLOOD CLOT, CURRENTLY ON ELIQUIS. NO SWELLING, SIGNS OF PE, ISCHEMIC LIMB. PAIN MEDS, PS WILL FU HEME ONC Time Seen by Provider: 10/01/18 01:05 Chief Complaint (Nursing): ENT Problem History Per: Patient History/Exam Limitations: no limitations Onset/Duration Of Symptoms: Days Current Symptoms Are (Timing): Worse Recent travel outside of the [place]: No Additional History Per: Patient Past Medical History Reviewed: Historical Data, Nursing Documentation, Vital Signs Vital Signs: Last Vital Signs Temp 97.7 F 10/01/18 00:24 Pulse 71 10/01/18 00:24 Resp 20 10/01/18 00:24 BP 101/75 10/01/18 00:24 Pulse Ox 100 10/01/18 00:24 Primary Care Provider: Tobias Persaud - Medical History PMH: Anxiety, Back Problems, Malignancy (Hodgkins lymphoma) Denies: Chronic Kidney Disease Other PMH: Hodgkin's lymphoma Surgical History: No Surg Hx Family History: States: Unknown Family Hx - Social History Hx Tobacco Use: No Hx Alcohol Use: No Hx Substance Use: No - Immunization History Hx Tetanus Toxoid Vaccination: No Hx Influenza Vaccination: Yes Hx Pneumococcal Vaccination: Yes Review Of Systems Constitutional: Negative for: Fever, Chills Cardiovascular: Positive for: Chest Pain Respiratory: Negative for: Cough, Shortness of Breath Gastrointestinal: Negative for: Nausea, Vomiting, Abdominal Pain Musculoskeletal: Positive for: Neck Pain, Shoulder Pain Skin: Negative for: Rash Neurological: Negative for: Weakness, Numbness, Headache, Dizziness Physical Exam - Physical Exam Appears: Non-toxic, No Acute Distress Skin: Normal Color, Warm, Dry, Other (chest wall no infection) Head: Atraumatic, Normacephalic Eye(s): bilateral: Normal Inspection Oral Mucosa: Moist Neck: Normal ROM, No Midline Cervical Tenderness, Supple, Other (no swelling ) Chest: Symmetrical, Tenderness (diffusely tender over the right subclavian area, no swelling or mass palpable.), Other (right chest port) Cardiovascular: Rhythm Regular Respiratory: Normal Breath Sounds, No Rales, No Rhonchi, No Wheezing Gastrointestinal/Abdominal: Soft, No Tenderness, No Distention Extremity: Bilateral: Atraumatic, Normal Color And Temperature, Normal ROM Pulses: Left Radial: Normal, Right Radial: Normal Neurological/Psych: Oriented x3, Normal Speech, Normal Cognition Gait: Steady ED Course And Treatment O2 Sat by Pulse Oximetry: 100 (ON RA) Pulse Ox Interpretation: Normal Medical Decision Making Medical Decision Making: Plan: * Toradol 60 mg IM MDM PT ADVISED KNOWN HO RECENT BLOOD CLOT, CURRENTLY ON ELIQUIS. NO SWELLING, SIGNS OF PE, ISCHEMIC LIMB. PAIN MEDS, PS WILL FU HEME ONC Disposition Counseled Patient/Family Regarding: Diagnosis, Need For Followup, Rx Given - Disposition Referrals: YOUR,ONCOLOGIST [Other] Disposition: HOME/ ROUTINE Disposition Time: 02:18 Condition: IMPROVED Additional Instructions: RETURN IF WORSENING SYMPTOMS, CHEST PAIN, DIFFICULTY BREATHING, ARM AND/OR NECK SWELLING. FOLLOW UP WITH YOUR ONCOLOGIST 1-2 DAYS Prescriptions: Ibuprofen [Motrin] 600 mg PO Q6 #30 tab Tramadol HCl [Ultram] 50 mg PO QID #20 tab Forms: [facility] (Macanese) - Clinical Impression Clinical Impression: Shoulder pain, Blood clot of vein in shoulder area - Scribe Statement The provider has reviewed the documentation as recorded by the Scribe Michael Villegas All medical record entries made by the Scribe were at my direction and personally dictated by me. I have reviewed the chart and agree that the record accurately reflects my personal performance of the history, physical exam, medical decision making, and the department course for this patient. I have also personally directed, reviewed, and agree with the discharge instructions and disposition.
[2018-10-01 02:45] VITALS: BP 103/76; PULSE 67; RESP 16; TEMP 97.9; O2SAT 98
== END 2018-10-01 02:45 | disposition home or self-care (01) ==
LOC: C.ER 00:22
DX: M25.511 Pain in right shoulder (principal); I82.609 Acute embolism and thrombosis of unspecified veins of unspecified upper extremity
CPT/HCPCS: 96372; 99282; J1885